=== PATIENT | female | born 1950 | race African-American/Black ===

== ENCOUNTER 2017-06-25 08:26 | Emergency (ER) | payer OTHER, MEDICARE, MEDICAID ==
[~2017-06-25] VITALS: Ht 167.6 cm; Wt 75.0 kg
[~2017-06-25 08:26] MED LIST: LISI2.5T55 PO; RALT400 PO; THIO1CAP PO
[2017-06-25 08:34] VITALS: BP 118/76; PULSE 104; RESP 16; TEMP 97.7; O2SAT 99
[2017-06-25] MEDS ORDERED: VIST25CA PO (08:56)
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
[2017-06-25 09:01] VITALS: PULSE 90; RESP 20; O2SAT 97
== END 2017-06-25 09:50 | disposition home or self-care (01) ==
LOC: NEPD 08:26
DX: M79.602 Pain in left arm (principal); M79.601 Pain in right arm; F41.9 Anxiety disorder, unspecified; J44.9 Chronic obstructive pulmonary disease, unspecified; E78.00 Pure hypercholesterolemia, unspecified; I10 Essential (primary) hypertension; I25.10 Atherosclerotic heart disease of native coronary artery without angina pectoris; M19.90 Unspecified osteoarthritis, unspecified site; F20.9 Schizophrenia, unspecified
CPT/HCPCS: 99283

== ENCOUNTER 2018-03-16 17:09 | Inpatient (IN) ==
[2018-03-16] MEDS ORDERED: Sod Chloride 0.9% Inj 1,000 ML IV.SIG SCH ×2 (17:15→18:30)
[2018-03-16 17:54] LABS: Baso # (Auto) 0.1 th/mm3 (0.0-0.2); Baso % (Auto) 0.8 % (0.0-2.0); Hematocrit 31.2 % (35.0-46.0); Lymph # (Auto) 1.1 th/mm3 (1.0-4.8); Lymph % (Auto) 6.7 % (9.0-44.0); Mean Corpuscular HGB Conc 35.2 % (32.0-36.0); Mean Corpuscular Hemoglobin 31.3 pg (27.0-34.0); Mean Corpuscular Volume 89.1 fL (80.0-100.0); Mean Platelet Volume 8.1 fL (7.0-11.0); Mono # (Auto) 0.6 th/mm3 (0.0-0.9); Mono % (Auto) 3.6 % (0.0-8.0); Neut # (Auto) 13.9 th/mm3 (1.8-7.7); Neut % (Auto) 88.9 % (16.0-70.0); Platelet Count 687 th/mm3 (150-450); Red Blood Count 3.51 mil/mm3 (4.00-5.30); Red Cell Distribution Width 14.5 % (11.6-17.2); White Blood Count 15.7 th/mm3 (4.0-11.0)
--- NOTE | 2018-03-16 18:05 | ED ---
HPI General Chief Complaint: Altered Mental Status Stated Complaint: Poss AMS Time Seen by Provider: 03/16/18 17:10 Source: patient, EMS, old records reviewed and other ([facility] field marketing representative) Mode of arrival: EMS Limitations: altered mental status History of Present Illness HPI narrative: 68-year-old female that presents to the ED for evaluation of altered mental status. Patient was brought here by ambulance secondary to altered mental status. Per report I was given and per [facility] field marketing representative who evaluated the patient patient has been altered since possibly a couple of days now. Patient has significant history of schizophrenia and paranoid. She also probably has a history of HIV. Per report I was given apparently she has been acting more bizarre for the past couple of days. Per field marketing representative who has seen her in the past she has never acted like this before. It almost seems like she is about to fall and has trouble coordinating her movements. It seems like she wants to move to the left side and followed to her left side. Per [facility] report patient was acting very bizarre in trying to put things on her closet but there was nothing there. She herself cannot really give me much history. Per report from the [facility] field marketing representative she might have not been taking her medications. She has no history of stroke. She has no history of cold- like symptoms. Patient herself denies any pain. She does have a history of smoking and possibly COPD. History is low but limited as patient herself is not really good historian secondary to her altered mental status. She denies any drugs or alcohol. Unclear there has been any falls but patient does not appear to have any signs of trauma. Per [facility] report her house is very unkempt and dirty. Related Data Home Medications Medication Instructions Recorded Confirmed amlodipine [Norvasc] 10 mg PO DAILY 03/16/18 03/16/18 darunavir-cobicistat 1 tab PO DAILY 03/16/18 03/16/18 dolutegravir 50 mg PO BID 03/16/18 03/16/18 emtricitabine-tenofovir alafen 1 tab PO DAILY 03/16/18 03/16/18 hydrochlorothiazide 25 mg PO DAILY 03/16/18 03/16/18 lisinopril 20 mg PO DAILY 03/16/18 03/16/18 quetiapine [Seroquel] 50 mg PO HS 03/16/18 03/16/18 tenofovir disoproxil fumarate 300 mg PO DAILY 03/16/18 03/16/18 thiothixene 5 mg PO BID 03/16/18 03/16/18 Allergies Allergy/AdvReac Type Severity Reaction Status Date / Time benztropine Allergy Severe STATES Unverified 02/25/17 14:08 DOESN'T REMEMBER REACTION celecoxib Allergy Severe STATES Unverified 02/25/17 14:08 DOESN'T REMEMBER REACTION citalopram Allergy Severe STATES Unverified 02/25/17 14:08 DOESN'T REMEMBER REACTION diphenhydramine Allergy Severe STATES Unverified 02/25/17 14:08 DOESN'T REMEMBER REACTION haloperidol Allergy Severe STATES Unverified 02/25/17 14:08 DOESN'T REMEMBER REACTION penicillin G Allergy Severe DOESN'T Unverified 02/25/17 14:08 REMEMBER REACTION propoxyphene Allergy Severe Hives Unverified 02/25/17 14:08 quetiapine Allergy Severe DOESN'T Unverified 02/25/17 14:08 REMEMBER REACTION Sulfa (Sulfonamide Allergy Severe DOESN'T Unverified 02/25/17 14:08 Antibiotics) REMEMBER REACTION trifluoperazine Allergy Severe DOESN'T Unverified 02/25/17 14:08 REMEMBER REACTION trihexyphenidyl Allergy Severe STATES Unverified 02/25/17 14:08 DOESN'T REMEMBER TYPE OF REACTION trimethobenzamide Allergy Severe DOESN'T Unverified 02/25/17 14:08 REMEMBER REACTION Review of Systems ROS: all other systems reviewed are negative PMFSH History History 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 Anorexic SKIN: Focused skin assessment warm/dry. HEAD: Atraumatic. Normocephalic. EYES: Pupils equal and round. No scleral icterus. No injection or drainage. ENT: No nasal bleeding or discharge. Mucous membranes pink and moist. NECK: Trachea midline. No JVD. CARDIOVASCULAR: Regular rate and rhythm. No murmur appreciated. RESPIRATORY: No accessory muscle use. Rales here in the lower lung tavarez. Breath sounds equal bilaterally. GASTROINTESTINAL: Abdomen soft, non-tender, nondistended. Hepatic and splenic margins not palpable. MUSCULOSKELETAL: No obvious deformities. No clubbing. No cyanosis. No edema. Full range of motion of the upper and lower extremities bilaterally. 2+ pulses bilaterally. NEUROLOGICAL: Awake and alert. No obvious cranial nerve deficits. Motor grossly within normal limits. Normal speech. PSYCHIATRIC: Appropriate mood and affect; insight and judgment normal. Course Initial Documented Vital Signs Temperature 97.5 F L 03/16/18 17:28 Pulse Rate 71 03/16/18 17:28 Respiratory Rate 18 03/16/18 17:28 Blood Pressure 112/58 L 03/16/18 17:28 Pulse Oximetry 99 03/16/18 17:28 Last Documented Vital Signs Temperature 98.0 F 03/18/18 18:56 Pulse Rate 85 03/19/18 04:00 Respiratory Rate 18 03/18/18 18:56 Blood Pressure 113/60 03/18/18 18:56 Pulse Oximetry 98 03/18/18 18:56 Medical Decision Making WILLIAM Attestation WILLIAM supervised visit: Yes Attestation: I, Dr. Patton, have reviewed the advance practice practitioner's documentation and am in agreement, met with the patient face to face, made the diagnosis, and the medical decision making was done by me. The patient was initially evaluated by Madhav, the WILLIAM. Please see their complete history and physical. *My assessment and Findings: The patient presents with a history of altered mentation noted by family. On examination the patient's examination is remarkable for being awake and alert, confused, following commands but only oriented to person, not place, time, or situation. The patient has dry mucous membranes and poor skin turgor. During the course of the patient's emergency department visit, the patient's history, examination, and differential diagnosis were reviewed with the patient. The patient was placed on a sql report analyst with oximetry and frequent blood pressure monitoring. The patient had IV access obtained and blood work sent for analysis. The patient was initially provided IV fluids. The patient's diagnostic studies are remarkable for her having acute renal failure with a creatinine of 17. The patient's case was discussed with the color blender who recommended bicarbonate administration IV. He will see the patient in consultation. The patient's results were discussed with the patient, including the plan of care. I explained that further testing and/ or monitoring is indicated based on the patient's history, examination, and/ or laboratory findings. Therefore, I recommended admission for additional evaluation. The patient expressed understanding and was agreeable with this plan. The patient was admitted to the hospital in guarded condition and sent to a bed under the care of the [facility] service. MDM Narrative Medical decision making narrative: 68-year-old female that presents to the ED for evaluation of altered mental status. Patient was properly examined and was found to have signs and symptoms of unclear etiology. It is unclear if this is psychiatric or medical. I do suspect that he has a component of both. She does have a significant history of HIV as well as possible COPD. Labs and imaging were ordered. IV fluids were started. Labs and imaging showed significant acute renal failure. No history of this per family. She does take multiple HIV meds which could cause this. Dehydration could also be causing this. Patient given fluids at my attendings recommendations. Dr John for nephrology contacted and recommends to start patient on D5W with Bicarb drip at 200 ccs per hour and renal ultrasound. Case discussed with Dr. Delong who agrees to admission to her service. This was discussed with my attending Dr Patton who agrees with plan. Family agrees with admission as well. Medical Screen Exam Complete: Yes Emergency Medical Condition: Yes Differential Diagnosis Differential Diagnosis: CHF exacerbation versus altered mental status versus sepsis versus CVA versus ACS versus UTI Medical Records Medical records reviewed: Yes I reviewed the patient's medical records. Lab Data Lab results reviewed: Yes I reviewed the patient's lab results. Result diagrams: 03/19/18 06:00 03/19/18 06:00 Lab Results 03/16/18 03/16/18 03/16/18 Range/Units 17:40 17:40 17:40 WBC 15.7 H (4.0-11.0) th/mm3 RBC 3.51 L (4.00-5.30) mil/mm3 Hgb 11.0 L (11.6-15.3) gm/dL Hct 31.2 L (35.0-46.0) % MCV 89.1 (80.0-100.0) fL MCH 31.3 (27.0-34.0) pg MCHC 35.2 (32.0-36.0) % RDW 14.5 (11.6-17.2) % Plt Count 687 H (150-450) th/mm3 MPV 8.1 (7.0-11.0) fL Prelim Diff (Auto) Slide review pending Neut % (Auto) 88.9 H (16.0-70.0) % Lymph % (Auto) 6.7 L (9.0-44.0) % [place] % (Auto) 3.6 (0.0-8.0) % Eos % (Auto) 0.0 (0.0-4.0) % Baso % (Auto) 0.8 (0.0-2.0) % Neut # (Auto) 13.9 H (1.8-7.7) th/mm3 Lymph # (Auto) 1.1 (1.0-4.8) th/mm3 [place] # (Auto) 0.6 (0.0-0.9) th/mm3 Eos # (Auto) 0.0 (0.0-0.4) th/mm3 Baso # (Auto) 0.1 (0.0-0.2) th/mm3 WBC Differential . Diff Scan Auto diff confirmed Differential Comment . Sodium 126 L (136-145) meq/L Potassium 4.4 (3.5-5.1) meq/L Chloride 86 L (98-107) meq/L Carbon Dioxide 12.4 L (21.0-32.0) meq/L Anion Gap 28 H (5-15) meq/L BUN 215 H (7-18) mg/dL Creatinine 17.69 H* (0.50-1.00) mg/dL Estimated GFR 2 L (>89) mL/min POC Glucose (68-110) mg/dl Random Glucose 93 (74-106) mg/dL Hemoglobin A1c (4.3-6.0) % Lactic Acid (0.4-2.0) mmol/L Calcium 8.3 L (8.5-10.1) mg/dL Phosphorus (2.5-4.9) mg/dL Total Bilirubin 0.6 (0.2-1.0) mg/dL AST 15 (15-37) U/L ALT 12 (10-53) U/L Alkaline Phosphatase 122 H (45-117) U/L Total Creatine Kinase (26-192) U/L Troponin I Less than 0.02 L (0.02-0.05) ng/mL B-Natriuretic Peptide (0-100) pg/mL Total Protein 7.5 (6.4-8.2) g/dL Total Protein (PEP) (6.4-8.2) gm/dL Albumin 2.2 L (3.4-5.0) g/dL Albumin (PEP) (3.50-5.00) gm/dL Albumin/Globulin Ratio (1.39-2.23) Uurco-9-Labkyedbg (0.11-0.29) gm/dL Kcouw-4-Nonrarril (0.22-1.00) gm/dL Beta Globulins (0.53-1.03) gm/dL Gamma Globulins (0.50-1.39) gm/dL PEP Pathologist Comment TSH 1.820 (0.358-3.740) uIU/mL Urine Color (Yellw/Straw) Urine Clarity (Clear) Urine pH (5.0-8.5) Ur Specific Reading (1.002-1.035) Urine Protein (Neg-Trace) mg/dL Urine Glucose (UA) (Negative) mg/dL Urine Ketones (Negative) mg/dL Urine Occult Blood (Negative) Urine Nitrate (Negative) Urine Bilirubin (Negative) Urine Urobilinogen (Less than 2) mg/dL Ur Leukocyte Esterase (Negative) Urine RBC (0-3) /hpf Urine WBC (0-5) /hpf Urine WBC Clumps (None) Urine Bacteria (None) /hpf Micro UA Comment Ur Microscopic Review Urine Culture Comments Urine Opiates Screen (Neg) Ur Barbiturates Screen (Neg) Ur Amphetamines Screen (Neg) U Benzodiazepines Scrn (Neg) Urine Cocaine Screen (Neg) U Cannabinoids Screen (Neg) Serum Alcohol Less than 2 (0-5) mg/dL DEVIN Screen (Neg) Complement C3 (90-180) mg/dL Complement C4 (10-40) mg/dL Hepatitis A IgM Ab (Nonreactive) Hep Bs Antigen (Nonreactive) Hep B Core IgM Ab (Nonreactive) Hep C IgG Ab (Nonreactive) 03/16/18 03/16/18 03/16/18 Range/Units 17:40 17:40 17:40 WBC (4.0-11.0) th/mm3 RBC (4.00-5.30) mil/mm3 Hgb (11.6-15.3) gm/dL Hct (35.0-46.0) % MCV (80.0-100.0) fL MCH (27.0-34.0) pg MCHC (32.0-36.0) % RDW (11.6-17.2) % Plt Count (150-450) th/mm3 MPV (7.0-11.0) fL Prelim Diff (Auto) Neut % (Auto) (16.0-70.0) % Lymph % (Auto) (9.0-44.0) % [place] % (Auto) (0.0-8.0) % Eos % (Auto) (0.0-4.0) % Baso % (Auto) (0.0-2.0) % Neut # (Auto) (1.8-7.7) th/mm3 Lymph # (Auto) (1.0-4.8) th/mm3 [place] # (Auto) (0.0-0.9) th/mm3 Eos # (Auto) (0.0-0.4) th/mm3 Baso # (Auto) (0.0-0.2) th/mm3 WBC Differential Diff Scan Differential Comment Sodium (136-145) meq/L Potassium (3.5-5.1) meq/L Chloride (98-107) meq/L Carbon Dioxide (21.0-32.0) meq/L Anion Gap (5-15) meq/L BUN (7-18) mg/dL Creatinine (0.50-1.00) mg/dL Estimated GFR (>89) mL/min POC Glucose (68-110) mg/dl Random Glucose (74-106) mg/dL Hemoglobin A1c (4.3-6.0) % Lactic Acid 0.8 (0.4-2.0) mmol/L Calcium (8.5-10.1) mg/dL Phosphorus (2.5-4.9) mg/dL Total Bilirubin (0.2-1.0) mg/dL AST (15-37) U/L ALT (10-53) U/L Alkaline Phosphatase (45-117) U/L Total Creatine Kinase 62 (26-192) U/L Troponin I (0.02-0.05) ng/mL B-Natriuretic Peptide 101 H (0-100) pg/mL Total Protein (6.4-8.2) g/dL Total Protein (PEP) (6.4-8.2) gm/dL Albumin (3.4-5.0) g/dL Albumin (PEP) (3.50-5.00) gm/dL Albumin/Globulin Ratio (1.39-2.23) Apbuq-6-Jmgsrnuqc (0.11-0.29) gm/dL Kemrs-8-Ndyufejpt (0.22-1.00) gm/dL Beta Globulins (0.53-1.03) gm/dL Gamma Globulins (0.50-1.39) gm/dL PEP Pathologist Comment TSH (0.358-3.740) uIU/mL Urine Color (Yellw/Straw) Urine Clarity (Clear) Urine pH (5.0-8.5) Ur Specific Reading (1.002-1.035) Urine Protein (Neg-Trace) mg/dL Urine Glucose (UA) (Negative) mg/dL Urine Ketones (Negative) mg/dL Urine Occult Blood (Negative) Urine Nitrate (Negative) Urine Bilirubin (Negative) Urine Urobilinogen (Less than 2) mg/dL Ur Leukocyte Esterase (Negative) Urine RBC (0-3) /hpf Urine WBC (0-5) /hpf Urine WBC Clumps (None) Urine Bacteria (None) /hpf Micro UA Comment Ur Microscopic Review Urine Culture Comments Urine Opiates Screen (Neg) Ur Barbiturates Screen (Neg) Ur Amphetamines Screen (Neg) U Benzodiazepines Scrn (Neg) Urine Cocaine Screen (Neg) U Cannabinoids Screen (Neg) Serum Alcohol (0-5) mg/dL DEVIN Screen (Neg) Complement C3 (90-180) mg/dL Complement C4 (10-40) mg/dL Hepatitis A IgM Ab (Nonreactive) Hep Bs Antigen (Nonreactive) Hep B Core IgM Ab (Nonreactive) Hep C IgG Ab (Nonreactive) 03/16/18 03/16/18 03/16/18 Range/Units 18:30 18:30 18:49 WBC (4.0-11.0) th/mm3 RBC (4.00-5.30) mil/mm3 Hgb (11.6-15.3) gm/dL Hct (35.0-46.0) % MCV (80.0-100.0) fL MCH (27.0-34.0) pg MCHC (32.0-36.0) % RDW (11.6-17.2) % Plt Count (150-450) th/mm3 MPV (7.0-11.0) fL Prelim Diff (Auto) Neut % (Auto) (16.0-70.0) % Lymph % (Auto) (9.0-44.0) % [place] % (Auto) (0.0-8.0) % Eos % (Auto) (0.0-4.0) % Baso % (Auto) (0.0-2.0) % Neut # (Auto) (1.8-7.7) th/mm3 Lymph # (Auto) (1.0-4.8) th/mm3 [place] # (Auto) (0.0-0.9) th/mm3 Eos # (Auto) (0.0-0.4) th/mm3 Baso # (Auto) (0.0-0.2) th/mm3 WBC Differential Diff Scan Differential Comment Sodium 126 L (136-145) meq/L Potassium 5.4 H D (3.5-5.1) meq/L Chloride 87 L (98-107) meq/L Carbon Dioxide 12.7 L (21.0-32.0) meq/L Anion Gap 26 H (5-15) meq/L BUN 222 H (7-18) mg/dL Creatinine 17.73 H* (0.50-1.00) mg/dL Estimated GFR 2 L (>89) mL/min POC Glucose (68-110) mg/dl Random Glucose 93 (74-106) mg/dL Hemoglobin A1c (4.3-6.0) % Lactic Acid (0.4-2.0) mmol/L Calcium 8.3 L (8.5-10.1) mg/dL Phosphorus (2.5-4.9) mg/dL Total Bilirubin (0.2-1.0) mg/dL AST (15-37) U/L ALT (10-53) U/L Alkaline Phosphatase (45-117) U/L Total Creatine Kinase (26-192) U/L Troponin I (0.02-0.05) ng/mL B-Natriuretic Peptide (0-100) pg/mL Total Protein (6.4-8.2) g/dL Total Protein (PEP) (6.4-8.2) gm/dL Albumin (3.4-5.0) g/dL Albumin (PEP) (3.50-5.00) gm/dL Albumin/Globulin Ratio (1.39-2.23) Ocgjo-7-Yianumkxs (0.11-0.29) gm/dL Gkepc-4-Fnhxfbuzt (0.22-1.00) gm/dL Beta Globulins (0.53-1.03) gm/dL Gamma Globulins (0.50-1.39) gm/dL PEP Pathologist Comment TSH (0.358-3.740) uIU/mL Urine Color Serena (Yellw/Straw) Urine Clarity Cloudy H (Clear) Urine pH 6.0 (5.0-8.5) Ur Specific Reading 1.012 (1.002-1.035) Urine Protein 100 H (Neg-Trace) mg/dL Urine Glucose (UA) Negative (Negative) mg/dL Urine Ketones Negative (Negative) mg/dL Urine Occult Blood Large H (Negative) Urine Nitrate Negative (Negative) Urine Bilirubin Negative (Negative) Urine Urobilinogen Less than 2 (Less than 2) mg/dL Ur Leukocyte Esterase Large H (Negative) Urine RBC 42 H (0-3) /hpf Urine WBC (0-5) /hpf Urine WBC Clumps Many H (None) Urine Bacteria Many H (None) /hpf Micro UA Comment Cath-culture ind Ur Microscopic Review Not Reportable Urine Culture Comments Cath-cult indicated Urine Opiates Screen Neg (Neg) Ur Barbiturates Screen Neg (Neg) Ur Amphetamines Screen Neg (Neg) U Benzodiazepines Scrn Neg (Neg) Urine Cocaine Screen Neg (Neg) U Cannabinoids Screen Neg (Neg) Serum Alcohol (0-5) mg/dL DEVIN Screen (Neg) Complement C3 (90-180) mg/dL Complement C4 (10-40) mg/dL Hepatitis A IgM Ab (Nonreactive) Hep Bs Antigen (Nonreactive) Hep B Core IgM Ab (Nonreactive) Hep C IgG Ab (Nonreactive) 03/17/18 03/17/18 03/17/18 Range/Units 05:04 05:04 05:04 WBC 13.2 H (4.0-11.0) th/mm3 RBC 3.18 L (4.00-5.30) mil/mm3 Hgb 9.9 L (11.6-15.3) gm/dL Hct 28.0 L (35.0-46.0) % MCV 88.3 (80.0-100.0) fL MCH 31.0 (27.0-34.0) pg MCHC 35.1 (32.0-36.0) % RDW 14.3 (11.6-17.2) % Plt Count 673 H (150-450) th/mm3 MPV 8.1 (7.0-11.0) fL Prelim Diff (Auto) Neut % (Auto) 89.0 H (16.0-70.0) % Lymph % (Auto) 5.8 L (9.0-44.0) % [place] % (Auto) 5.0 (0.0-8.0) % Eos % (Auto) 0.1 (0.0-4.0) % Baso % (Auto) 0.1 (0.0-2.0) % Neut # (Auto) 11.7 H (1.8-7.7) th/mm3 Lymph # (Auto) 0.8 L (1.0-4.8) th/mm3 [place] # (Auto) 0.7 (0.0-0.9) th/mm3 Eos # (Auto) 0.0 (0.0-0.4) th/mm3 Baso # (Auto) 0.0 (0.0-0.2) th/mm3 WBC Differential . Diff Scan Differential Comment Auto diff final Sodium 128 L (136-145) meq/L Potassium 4.3 D (3.5-5.1) meq/L Chloride 86 L (98-107) meq/L Carbon Dioxide 15.7 L (21.0-32.0) meq/L Anion Gap 26 H (5-15) meq/L BUN 210 H (7-18) mg/dL Creatinine 17.35 H* (0.50-1.00) mg/dL Estimated GFR 2 L (>89) mL/min POC Glucose (68-110) mg/dl Random Glucose 168 H (74-106) mg/dL Hemoglobin A1c 6.1 H (4.3-6.0) % Lactic Acid (0.4-2.0) mmol/L Calcium 7.7 L (8.5-10.1) mg/dL Phosphorus (2.5-4.9) mg/dL Total Bilirubin 0.5 (0.2-1.0) mg/dL AST 12 L (15-37) U/L ALT 9 L (10-53) U/L Alkaline Phosphatase 108 (45-117) U/L Total Creatine Kinase (26-192) U/L Troponin I (0.02-0.05) ng/mL B-Natriuretic Peptide (0-100) pg/mL Total Protein 6.6 D (6.4-8.2) g/dL Total Protein (PEP) (6.4-8.2) gm/dL Albumin 2.0 L (3.4-5.0) g/dL Albumin (PEP) (3.50-5.00) gm/dL Albumin/Globulin Ratio (1.39-2.23) Zomhj-9-Yscmxsxcy (0.11-0.29) gm/dL Twkrj-5-Bhueqvwak (0.22-1.00) gm/dL Beta Globulins (0.53-1.03) gm/dL Gamma Globulins (0.50-1.39) gm/dL PEP Pathologist Comment TSH (0.358-3.740) uIU/mL Urine Color (Yellw/Straw) Urine Clarity (Clear) Urine pH (5.0-8.5) Ur Specific Reading (1.002-1.035) Urine Protein (Neg-Trace) mg/dL Urine Glucose (UA) (Negative) mg/dL Urine Ketones (Negative) mg/dL Urine Occult Blood (Negative) Urine Nitrate (Negative) Urine Bilirubin (Negative) Urine Urobilinogen (Less than 2) mg/dL Ur Leukocyte Esterase (Negative) Urine RBC (0-3) /hpf Urine WBC (0-5) /hpf Urine WBC Clumps (None) Urine Bacteria (None) /hpf Micro UA Comment Ur Microscopic Review Urine Culture Comments Urine Opiates Screen (Neg) Ur Barbiturates Screen (Neg) Ur Amphetamines Screen (Neg) U Benzodiazepines Scrn (Neg) Urine Cocaine Screen (Neg) U Cannabinoids Screen (Neg) Serum Alcohol (0-5) mg/dL DEVIN Screen (Neg) Complement C3 (90-180) mg/dL Complement C4 (10-40) mg/dL Hepatitis A IgM Ab (Nonreactive) Hep Bs Antigen (Nonreactive) Hep B Core IgM Ab (Nonreactive) Hep C IgG Ab (Nonreactive) 03/17/18 03/17/18 03/17/18 Range/Units 09:51 09:51 09:51 WBC (4.0-11.0) th/mm3 RBC (4.00-5.30) mil/mm3 Hgb (11.6-15.3) gm/dL Hct (35.0-46.0) % MCV (80.0-100.0) fL MCH (27.0-34.0) pg MCHC (32.0-36.0) % RDW (11.6-17.2) % Plt Count (150-450) th/mm3 MPV (7.0-11.0) fL Prelim Diff (Auto) Neut % (Auto) (16.0-70.0) % Lymph % (Auto) (9.0-44.0) % [place] % (Auto) (0.0-8.0) % Eos % (Auto) (0.0-4.0) % Baso % (Auto) (0.0-2.0) % Neut # (Auto) (1.8-7.7) th/mm3 Lymph # (Auto) (1.0-4.8) th/mm3 [place] # (Auto) (0.0-0.9) th/mm3 Eos # (Auto) (0.0-0.4) th/mm3 Baso # (Auto) (0.0-0.2) th/mm3 WBC Differential Diff Scan Differential Comment Sodium (136-145) meq/L Potassium (3.5-5.1) meq/L Chloride (98-107) meq/L Carbon Dioxide (21.0-32.0) meq/L Anion Gap (5-15) meq/L BUN (7-18) mg/dL Creatinine (0.50-1.00) mg/dL Estimated GFR (>89) mL/min POC Glucose (68-110) mg/dl Random Glucose (74-106) mg/dL Hemoglobin A1c (4.3-6.0) % Lactic Acid (0.4-2.0) mmol/L Calcium (8.5-10.1) mg/dL Phosphorus 8.2 H (2.5-4.9) mg/dL Total Bilirubin (0.2-1.0) mg/dL AST (15-37) U/L ALT (10-53) U/L Alkaline Phosphatase (45-117) U/L Total Creatine Kinase (26-192) U/L Troponin I (0.02-0.05) ng/mL B-Natriuretic Peptide (0-100) pg/mL Total Protein (6.4-8.2) g/dL Total Protein (PEP) 5.5 L (6.4-8.2) gm/dL Albumin (3.4-5.0) g/dL Albumin (PEP) 2.33 L (3.50-5.00) gm/dL Albumin/Globulin Ratio 0.74 L (1.39-2.23) Yzdlh-5-Zfaslmgjc 0.45 H (0.11-0.29) gm/dL Nkhwt-7-Mjzjrbmio 0.92 (0.22-1.00) gm/dL Beta Globulins 0.84 (0.53-1.03) gm/dL Gamma Globulins 0.96 (0.50-1.39) gm/dL PEP Pathologist Comment TSH (0.358-3.740) uIU/mL Urine Color (Yellw/Straw) Urine Clarity (Clear) Urine pH (5.0-8.5) Ur Specific Reading (1.002-1.035) Urine Protein (Neg-Trace) mg/dL Urine Glucose (UA) (Negative) mg/dL Urine Ketones (Negative) mg/dL Urine Occult Blood (Negative) Urine Nitrate (Negative) Urine Bilirubin (Negative) Urine Urobilinogen (Less than 2) mg/dL Ur Leukocyte Esterase (Negative) Urine RBC (0-3) /hpf Urine WBC (0-5) /hpf Urine WBC Clumps (None) Urine Bacteria (None) /hpf Micro UA Comment Ur Microscopic Review Urine Culture Comments Urine Opiates Screen (Neg) Ur Barbiturates Screen (Neg) Ur Amphetamines Screen (Neg) U Benzodiazepines Scrn (Neg) Urine Cocaine Screen (Neg) U Cannabinoids Screen (Neg) Serum Alcohol (0-5) mg/dL DEVIN Screen Neg (Neg) Complement C3 125 (90-180) mg/dL Complement C4 37 (10-40) mg/dL Hepatitis A IgM Ab (Nonreactive) Hep Bs Antigen (Nonreactive) Hep B Core IgM Ab (Nonreactive) Hep C IgG Ab (Nonreactive) 03/17/18 03/17/18 03/18/18 Range/Units 09:51 17:57 07:23 WBC (4.0-11.0) th/mm3 RBC (4.00-5.30) mil/mm3 Hgb (11.6-15.3) gm/dL Hct (35.0-46.0) % MCV (80.0-100.0) fL MCH (27.0-34.0) pg MCHC (32.0-36.0) % RDW (11.6-17.2) % Plt Count (150-450) th/mm3 MPV (7.0-11.0) fL Prelim Diff (Auto) Neut % (Auto) (16.0-70.0) % Lymph % (Auto) (9.0-44.0) % [place] % (Auto) (0.0-8.0) % Eos % (Auto) (0.0-4.0) % Baso % (Auto) (0.0-2.0) % Neut # (Auto) (1.8-7.7) th/mm3 Lymph # (Auto) (1.0-4.8) th/mm3 [place] # (Auto) (0.0-0.9) th/mm3 Eos # (Auto) (0.0-0.4) th/mm3 Baso # (Auto) (0.0-0.2) th/mm3 WBC Differential Diff Scan Differential Comment Sodium (136-145) meq/L Potassium (3.5-5.1) meq/L Chloride (98-107) meq/L Carbon Dioxide (21.0-32.0) meq/L Anion Gap (5-15) meq/L BUN (7-18) mg/dL Creatinine (0.50-1.00) mg/dL Estimated GFR (>89) mL/min POC Glucose 119 H 126 H (68-110) mg/dl Random Glucose (74-106) mg/dL Hemoglobin A1c (4.3-6.0) % Lactic Acid (0.4-2.0) mmol/L Calcium (8.5-10.1) mg/dL Phosphorus (2.5-4.9) mg/dL Total Bilirubin (0.2-1.0) mg/dL AST (15-37) U/L ALT (10-53) U/L Alkaline Phosphatase (45-117) U/L Total Creatine Kinase (26-192) U/L Troponin I (0.02-0.05) ng/mL B-Natriuretic Peptide (0-100) pg/mL Total Protein (6.4-8.2) g/dL Total Protein (PEP) (6.4-8.2) gm/dL Albumin (3.4-5.0) g/dL Albumin (PEP) (3.50-5.00) gm/dL Albumin/Globulin Ratio (1.39-2.23) Wduae-0-Qknxgfdfx (0.11-0.29) gm/dL Sqdgb-8-Egcboqetp (0.22-1.00) gm/dL Beta Globulins (0.53-1.03) gm/dL Gamma Globulins (0.50-1.39) gm/dL PEP Pathologist Comment TSH (0.358-3.740) uIU/mL Urine Color (Yellw/Straw) Urine Clarity (Clear) Urine pH (5.0-8.5) Ur Specific Reading (1.002-1.035) Urine Protein (Neg-Trace) mg/dL Urine Glucose (UA) (Negative) mg/dL Urine Ketones (Negative) mg/dL Urine Occult Blood (Negative) Urine Nitrate (Negative) Urine Bilirubin (Negative) Urine Urobilinogen (Less than 2) mg/dL Ur Leukocyte Esterase (Negative) Urine RBC (0-3) /hpf Urine WBC (0-5) /hpf Urine WBC Clumps (None) Urine Bacteria (None) /hpf Micro UA Comment Ur Microscopic Review Urine Culture Comments Urine Opiates Screen (Neg) Ur Barbiturates Screen (Neg) Ur Amphetamines Screen (Neg) U Benzodiazepines Scrn (Neg) Urine Cocaine Screen (Neg) U Cannabinoids Screen (Neg) Serum Alcohol (0-5) mg/dL DEVIN Screen (Neg) Complement C3 (90-180) mg/dL Complement C4 (10-40) mg/dL Hepatitis A IgM Ab Nonreactive (Nonreactive) Hep Bs Antigen Nonreactive (Nonreactive) Hep B Core IgM Ab Nonreactive (Nonreactive) Hep C IgG Ab Nonreactive (Nonreactive) 03/18/18 03/18/18 03/18/18 Range/Units 10:55 12:35 12:35 WBC 18.1 H (4.0-11.0) th/mm3 RBC 4.26 (4.00-5.30) mil/mm3 Hgb 13.2 D (11.6-15.3) gm/dL Hct 38.1 (35.0-46.0) % MCV 89.5 (80.0-100.0) fL MCH 30.9 (27.0-34.0) pg MCHC 34.5 (32.0-36.0) % RDW 14.4 (11.6-17.2) % Plt Count 493 H (150-450) th/mm3 MPV 8.1 (7.0-11.0) fL Prelim Diff (Auto) Neut % (Auto) 89.9 H (16.0-70.0) % Lymph % (Auto) 3.9 L (9.0-44.0) % [place] % (Auto) 5.7 (0.0-8.0) % Eos % (Auto) 0.3 (0.0-4.0) % Baso % (Auto) 0.2 (0.0-2.0) % Neut # (Auto) 16.3 H (1.8-7.7) th/mm3 Lymph # (Auto) 0.7 L (1.0-4.8) th/mm3 [place] # (Auto) 1.0 H (0.0-0.9) th/mm3 Eos # (Auto) 0.0 (0.0-0.4) th/mm3 Baso # (Auto) 0.0 (0.0-0.2) th/mm3 WBC Differential . Diff Scan Differential Comment Auto diff final Sodium 137 (136-145) meq/L Potassium 3.5 D (3.5-5.1) meq/L Chloride 96 L D (98-107) meq/L Carbon Dioxide 25.7 D (21.0-32.0) meq/L Anion Gap 15 (5-15) meq/L BUN 75 H (7-18) mg/dL Creatinine 7.49 H (0.50-1.00) mg/dL Estimated GFR 7 L (>89) mL/min POC Glucose 97 (68-110) mg/dl Random Glucose 94 (74-106) mg/dL Hemoglobin A1c (4.3-6.0) % Lactic Acid (0.4-2.0) mmol/L Calcium 8.7 D (8.5-10.1) mg/dL Phosphorus (2.5-4.9) mg/dL Total Bilirubin 0.8 (0.2-1.0) mg/dL AST 19 (15-37) U/L ALT 9 L (10-53) U/L Alkaline Phosphatase 115 (45-117) U/L Total Creatine Kinase (26-192) U/L Troponin I (0.02-0.05) ng/mL B-Natriuretic Peptide (0-100) pg/mL Total Protein 7.0 (6.4-8.2) g/dL Total Protein (PEP) (6.4-8.2) gm/dL Albumin 2.2 L (3.4-5.0) g/dL Albumin (PEP) (3.50-5.00) gm/dL Albumin/Globulin Ratio (1.39-2.23) Rkhlw-9-Laizmfucn (0.11-0.29) gm/dL Fcqwm-0-Zrxifmtlp (0.22-1.00) gm/dL Beta Globulins (0.53-1.03) gm/dL Gamma Globulins (0.50-1.39) gm/dL PEP Pathologist Comment TSH (0.358-3.740) uIU/mL Urine Color (Yellw/Straw) Urine Clarity (Clear) Urine pH (5.0-8.5) Ur Specific Reading (1.002-1.035) Urine Protein (Neg-Trace) mg/dL Urine Glucose (UA) (Negative) mg/dL Urine Ketones (Negative) mg/dL Urine Occult Blood (Negative) Urine Nitrate (Negative) Urine Bilirubin (Negative) Urine Urobilinogen (Less than 2) mg/dL Ur Leukocyte Esterase (Negative) Urine RBC (0-3) /hpf Urine WBC (0-5) /hpf Urine WBC Clumps (None) Urine Bacteria (None) /hpf Micro UA Comment Ur Microscopic Review Urine Culture Comments Urine Opiates Screen (Neg) Ur Barbiturates Screen (Neg) Ur Amphetamines Screen (Neg) U Benzodiazepines Scrn (Neg) Urine Cocaine Screen (Neg) U Cannabinoids Screen (Neg) Serum Alcohol (0-5) mg/dL DEVIN Screen (Neg) Complement C3 (90-180) mg/dL Complement C4 (10-40) mg/dL Hepatitis A IgM Ab (Nonreactive) Hep Bs Antigen (Nonreactive) Hep B Core IgM Ab (Nonreactive) Hep C IgG Ab (Nonreactive) 03/18/18 03/19/18 03/19/18 Range/Units 17:02 06:00 06:00 WBC 19.8 H (4.0-11.0) th/mm3 RBC 3.28 L (4.00-5.30) mil/mm3 Hgb 10.0 L D (11.6-15.3) gm/dL Hct 29.1 L (35.0-46.0) % MCV 88.8 (80.0-100.0) fL MCH 30.6 (27.0-34.0) pg MCHC 34.4 (32.0-36.0) % RDW 14.1 (11.6-17.2) % Plt Count 544 H (150-450) th/mm3 MPV 8.4 (7.0-11.0) fL Prelim Diff (Auto) Neut % (Auto) 88.4 H (16.0-70.0) % Lymph % (Auto) 5.3 L (9.0-44.0) % [place] % (Auto) 5.8 (0.0-8.0) % Eos % (Auto) 0.3 (0.0-4.0) % Baso % (Auto) 0.2 (0.0-2.0) % Neut # (Auto) 17.5 H (1.8-7.7) th/mm3 Lymph # (Auto) 1.0 (1.0-4.8) th/mm3 [place] # (Auto) 1.1 H (0.0-0.9) th/mm3 Eos # (Auto) 0.1 (0.0-0.4) th/mm3 Baso # (Auto) 0.0 (0.0-0.2) th/mm3 WBC Differential . Diff Scan Differential Comment Auto diff final Sodium 138 (136-145) meq/L Potassium 3.8 (3.5-5.1) meq/L Chloride 96 L (98-107) meq/L Carbon Dioxide 26.1 (21.0-32.0) meq/L Anion Gap 16 H (5-15) meq/L BUN 85 H (7-18) mg/dL Creatinine 9.16 H (0.50-1.00) mg/dL Estimated GFR 5 L (>89) mL/min POC Glucose 150 H (68-110) mg/dl Random Glucose 96 (74-106) mg/dL Hemoglobin A1c (4.3-6.0) % Lactic Acid (0.4-2.0) mmol/L Calcium 8.9 (8.5-10.1) mg/dL Phosphorus 5.6 H D (2.5-4.9) mg/dL Total Bilirubin (0.2-1.0) mg/dL AST (15-37) U/L ALT (10-53) U/L Alkaline Phosphatase (45-117) U/L Total Creatine Kinase (26-192) U/L Troponin I (0.02-0.05) ng/mL B-Natriuretic Peptide (0-100) pg/mL Total Protein (6.4-8.2) g/dL Total Protein (PEP) (6.4-8.2) gm/dL Albumin 2.1 L (3.4-5.0) g/dL Albumin (PEP) (3.50-5.00) gm/dL Albumin/Globulin Ratio (1.39-2.23) Vpydn-3-Yknvdypqt (0.11-0.29) gm/dL Svncu-7-Bdsgcqbhe (0.22-1.00) gm/dL Beta Globulins (0.53-1.03) gm/dL Gamma Globulins (0.50-1.39) gm/dL PEP Pathologist Comment TSH (0.358-3.740) uIU/mL Urine Color (Yellw/Straw) Urine Clarity (Clear) Urine pH (5.0-8.5) Ur Specific Reading (1.002-1.035) Urine Protein (Neg-Trace) mg/dL Urine Glucose (UA) (Negative) mg/dL Urine Ketones (Negative) mg/dL Urine Occult Blood (Negative) Urine Nitrate (Negative) Urine Bilirubin (Negative) Urine Urobilinogen (Less than 2) mg/dL Ur Leukocyte Esterase (Negative) Urine RBC (0-3) /hpf Urine WBC (0-5) /hpf Urine WBC Clumps (None) Urine Bacteria (None) /hpf Micro UA Comment Ur Microscopic Review Urine Culture Comments Urine Opiates Screen (Neg) Ur Barbiturates Screen (Neg) Ur Amphetamines Screen (Neg) U Benzodiazepines Scrn (Neg) Urine Cocaine Screen (Neg) U Cannabinoids Screen (Neg) Serum Alcohol (0-5) mg/dL DEVIN Screen (Neg) Complement C3 (90-180) mg/dL Complement C4 (10-40) mg/dL Hepatitis A IgM Ab (Nonreactive) Hep Bs Antigen (Nonreactive) Hep B Core IgM Ab (Nonreactive) Hep C IgG Ab (Nonreactive) 03/19/18 Range/Units 08:00 WBC (4.0-11.0) th/mm3 RBC (4.00-5.30) mil/mm3 Hgb (11.6-15.3) gm/dL Hct (35.0-46.0) % MCV (80.0-100.0) fL MCH (27.0-34.0) pg MCHC (32.0-36.0) % RDW (11.6-17.2) % Plt Count (150-450) th/mm3 MPV (7.0-11.0) fL Prelim Diff (Auto) Neut % (Auto) (16.0-70.0) % Lymph % (Auto) (9.0-44.0) % [place] % (Auto) (0.0-8.0) % Eos % (Auto) (0.0-4.0) % Baso % (Auto) (0.0-2.0) % Neut # (Auto) (1.8-7.7) th/mm3 Lymph # (Auto) (1.0-4.8) th/mm3 [place] # (Auto) (0.0-0.9) th/mm3 Eos # (Auto) (0.0-0.4) th/mm3 Baso # (Auto) (0.0-0.2) th/mm3 WBC Differential Diff Scan Differential Comment Sodium (136-145) meq/L Potassium (3.5-5.1) meq/L Chloride (98-107) meq/L Carbon Dioxide (21.0-32.0) meq/L Anion Gap (5-15) meq/L BUN (7-18) mg/dL Creatinine (0.50-1.00) mg/dL Estimated GFR (>89) mL/min POC Glucose 129 H (68-110) mg/dl Random Glucose (74-106) mg/dL Hemoglobin A1c (4.3-6.0) % Lactic Acid (0.4-2.0) mmol/L Calcium (8.5-10.1) mg/dL Phosphorus (2.5-4.9) mg/dL Total Bilirubin (0.2-1.0) mg/dL AST (15-37) U/L ALT (10-53) U/L Alkaline Phosphatase (45-117) U/L Total Creatine Kinase (26-192) U/L Troponin I (0.02-0.05) ng/mL B-Natriuretic Peptide (0-100) pg/mL Total Protein (6.4-8.2) g/dL Total Protein (PEP) (6.4-8.2) gm/dL Albumin (3.4-5.0) g/dL Albumin (PEP) (3.50-5.00) gm/dL Albumin/Globulin Ratio (1.39-2.23) Lmbkt-7-Rosxufqaw (0.11-0.29) gm/dL Ruiqs-3-Rddtevqnp (0.22-1.00) gm/dL Beta Globulins (0.53-1.03) gm/dL Gamma Globulins (0.50-1.39) gm/dL PEP Pathologist Comment TSH (0.358-3.740) uIU/mL Urine Color (Yellw/Straw) Urine Clarity (Clear) Urine pH (5.0-8.5) Ur Specific Reading (1.002-1.035) Urine Protein (Neg-Trace) mg/dL Urine Glucose (UA) (Negative) mg/dL Urine Ketones (Negative) mg/dL Urine Occult Blood (Negative) Urine Nitrate (Negative) Urine Bilirubin (Negative) Urine Urobilinogen (Less than 2) mg/dL Ur Leukocyte Esterase (Negative) Urine RBC (0-3) /hpf Urine WBC (0-5) /hpf Urine WBC Clumps (None) Urine Bacteria (None) /hpf Micro UA Comment Ur Microscopic Review Urine Culture Comments Urine Opiates Screen (Neg) Ur Barbiturates Screen (Neg) Ur Amphetamines Screen (Neg) U Benzodiazepines Scrn (Neg) Urine Cocaine Screen (Neg) U Cannabinoids Screen (Neg) Serum Alcohol (0-5) mg/dL DEVIN Screen (Neg) Complement C3 (90-180) mg/dL Complement C4 (10-40) mg/dL Hepatitis A IgM Ab (Nonreactive) Hep Bs Antigen (Nonreactive) Hep B Core IgM Ab (Nonreactive) Hep C IgG Ab (Nonreactive) Imaging Data Attestation: I personally reviewed and interpreted this imaging study as follows : Radiologist's impression: Chest X-Ray 03/16/18 17:13 CONCLUSION: Slight CHF. Head CT 03/16/18 17:13 CONCLUSION: Unremarkable study except for mild mucoperiosteal thickening left sphenoid sinus. Abdomen/Pelvis CT 03/16/18 19:35 CONCLUSION: Essentially unremarkable study except for chronic vascular calcifications and stool. Abdomen/Bladder Ultrasound 03/16/18 20:12 CONCLUSION: 1. Negative renal sonogram. Catheter Placement 03/17/18 08:42 CONCLUSION: 1. Uncomplicated line placement as above. ECG Data Attestation: I personally reviewed and interpreted this ECG as follows: Interpretation: EKG shows sinus rhythm with no sign of acute ischemia or arrhythmia read by me and attending. No ST elevations. NJ interval of 192, vent rate of 73. Discharge Plan Discharge Disposition Patient Disposition: 30 Still Patient Discharge Details Diagnosis: Acute renal failure, Altered mental status, HIV (human immunodeficiency virus infection), Schizophrenia Physicians Team ED Provider: Stephanie Patton ED Midlevel Provider: Madhav Caputo Primary Care Provider: Primary Care Harshad,Minda Attending Provider: Jonathon Macias Other Providers: Roosevlet John ; Emili Centeno Status ED Status: Left Department Discharge Information Discharge Date/Time: 03/16/18 22:32
[2018-03-16 18:11] LABS: Alanine Aminotransferase 12 U/L (10-53); Albumin 2.2 g/dL (3.4-5.0); Anion Gap 28 meq/L (5-15); Aspartate Aminotransferase 15 U/L (15-37); Blood Urea Nitrogen 215 mg/dL (7-18); Calcium 8.3 mg/dL (8.5-10.1); Carbon Dioxide 12.4 meq/L (21.0-32.0); Chloride 86 meq/L (98-107); Glomerular Filtration Rate 2 mL/min (>89); Glucose,Random 93 mg/dL (74-106); Potassium 4.4 meq/L (3.5-5.1); Sodium 126 meq/L (136-145)
[2018-03-16 18:14] LABS: Alkaline Phosphatase 122 U/L (45-117); Total Protein 7.5 g/dL (6.4-8.2)
[2018-03-16 19:11] LABS: Bacteria,Urine Many /hpf; Bilirubin,Urine Negative (Negative); Clarity,Urine Cloudy (Clear); Color,Urine Amber (Yellw/Straw); Glucose,Urine (UA) Negative (Negative); Leukocyte Esterase,Urine Large (Negative); Nitrite,Urine Negative (Negative); Specific Gravity,Urine 1.012 (1.002-1.035)
[2018-03-16] MEDS ORDERED: Ciprofloxacin 400 MG/200 ML 400 MG/200 ML PIGGYBACK IV.SIG ONE (19:13)
[2018-03-16 19:19] LABS: Amphetamine Screen,Urine Neg (Neg); Barbiturate Screen,Urine Neg (Neg); Cannabinoid Screen,Urine Neg (Neg); Cocaine Screen,Urine Neg (Neg)
[2018-03-16 19:26] LABS: Calcium 8.3 mg/dL (8.5-10.1); Carbon Dioxide 12.7 meq/L (21.0-32.0)
[2018-03-16 19:27] LABS: Opiate Screen,Urine Neg (Neg)
[2018-03-16 19:33] LABS: Potassium 5.4 meq/L (3.5-5.1)
[2018-03-16] MEDS ORDERED: Bisacodyl 10 MG Supp RECTAL PRN (21:06)
[2018-03-16] MEDS ORDERED: Acetaminophen 325 MG Tablet PO PRN (21:06)
[2018-03-16] MEDS: Heparin - SQ 10,000 UNITS/ML Vial SQ SCH (21:37)
--- NOTE | 2018-03-16 21:49 | ECG ---
Date Performed: 03/16/2018 Time Performed: 18:03:32 PTAGE: 68 years EKG: Sinus rhythm NORMAL ECG PREVIOUS TRACING : 03/31/2007 15.30 No significant change from previous tracing noted. DOCTOR: Darryl Nava Interpretating Date/Time 03/16/2018 21:47:25
[2018-03-16] MEDS: Sodium Bicarbonate 8.4% Inj 75 MEQ in Dextrose 5% in Water Inj 925 ML IV.CONT SCH ×2 (23:04)
[2018-03-17] MEDS: Sodium Bicarbonate 8.4% Inj 75 MEQ in Dextrose 5% in Water Inj 925 ML IV.CONT SCH ×4 (04:25→19:33)
[2018-03-17] MEDS: Heparin - SQ 10,000 UNITS/ML Vial SQ SCH (05:19)
[2018-03-17 05:56] LABS: Baso % (Auto) 0.1 % (0.0-2.0); Eos % (Auto) 0.1 % (0.0-4.0); Hemoglobin 9.9 gm/dL (11.6-15.3); Lymph # (Auto) 0.8 th/mm3 (1.0-4.8); Lymph % (Auto) 5.8 % (9.0-44.0); Mean Corpuscular HGB Conc 35.1 % (32.0-36.0); Mean Corpuscular Volume 88.3 fL (80.0-100.0); Mean Platelet Volume 8.1 fL (7.0-11.0); Mono # (Auto) 0.7 th/mm3 (0.0-0.9); Neut # (Auto) 11.7 th/mm3 (1.8-7.7); Platelet Count 673 th/mm3 (150-450); Red Blood Count 3.18 mil/mm3 (4.00-5.30); Red Cell Distribution Width 14.3 % (11.6-17.2); White Blood Count 13.2 th/mm3 (4.0-11.0)
[2018-03-17 06:28] LABS: Alanine Aminotransferase 9 U/L (10-53); Alkaline Phosphatase 108 U/L (45-117); Anion Gap 26 meq/L (5-15); Aspartate Aminotransferase 12 U/L (15-37); Blood Urea Nitrogen 210 mg/dL (7-18); Calcium 7.7 mg/dL (8.5-10.1); Carbon Dioxide 15.7 meq/L (21.0-32.0); Chloride 86 meq/L (98-107); Glomerular Filtration Rate 2 mL/min (>89); Glucose,Random 168 mg/dL (74-106); Potassium 4.3 meq/L (3.5-5.1); Sodium 128 meq/L (136-145); Total Protein 6.6 g/dL (6.4-8.2)
[2018-03-17] MEDS ORDERED: Sod Chloride 0.9% Inj 1,000 ML OTHER PRN ×2 (08:57)
[2018-03-17] MEDS ORDERED: Albumin Human 25% Inj 100 ML IV.SIG PRN (08:57)
[2018-03-17] MEDS ORDERED: Heparin 10,000 UNITS/10 ML Vial (for IV use) OTHER PRN (08:57)
[2018-03-17] MEDS ORDERED: Sod Chloride 0.9% Inj 1,000 ML IV.CONT PRN (08:57)
[2018-03-17] MEDS ORDERED: Acetaminophen 325 MG Tablet PO PRN (08:57)
[2018-03-17] MEDS ORDERED: Gelatin 12 MM/7 MM Topical Foam TOPICAL PRN (08:57)
[2018-03-17 11:27] LABS: Phosphorus 8.2 mg/dL (2.5-4.9)
[2018-03-17 11:39] LABS: Hepatitits B Surface Antigen Nonreactive (Nonreactive)
[2018-03-17 12:00] LABS: Hepatitis A IgM Antibody Nonreactive (Nonreactive)
[2018-03-17] MEDS ORDERED: *Heparin 10,000 UNITS/10 ML Vial Periprocedural ONLY ONE (12:33)
[2018-03-17] MEDS ORDERED: Dextrose 50% in Water 50 ML Vial IV.PUSH PRN (15:31)
[2018-03-17] MEDS: Insulin NovoLOG Aspart Correctional Sugar Inj SQ SCH ×2 (19:33→20:59)
[2018-03-17 22:24] LABS: Hemoglobin A1c 6.1 % (4.3-6.0)
[2018-03-18] MEDS: Insulin NovoLOG Aspart Correctional Sugar Inj SQ SCH ×4 (08:22→21:00)
[2018-03-18] MEDS: Sodium Bicarbonate 8.4% Inj 75 MEQ in Dextrose 5% in Water Inj 925 ML IV.CONT SCH ×2 (08:22)
[2018-03-18] MEDS: Heparin 10,000 UNITS/10 ML Vial (for IV use) OTHER PRN (11:15)
[2018-03-18 13:14] LABS: Baso % (Auto) 0.2 % (0.0-2.0); Eos % (Auto) 0.3 % (0.0-4.0); Hematocrit 38.1 % (35.0-46.0); Hemoglobin 13.2 gm/dL (11.6-15.3); Lymph # (Auto) 0.7 th/mm3 (1.0-4.8); Lymph % (Auto) 3.9 % (9.0-44.0); Mean Corpuscular HGB Conc 34.5 % (32.0-36.0); Mean Corpuscular Hemoglobin 30.9 pg (27.0-34.0); Mean Corpuscular Volume 89.5 fL (80.0-100.0); Mean Platelet Volume 8.1 fL (7.0-11.0); Mono % (Auto) 5.7 % (0.0-8.0); Neut # (Auto) 16.3 th/mm3 (1.8-7.7); Neut % (Auto) 89.9 % (16.0-70.0); Platelet Count 493 th/mm3 (150-450); Red Blood Count 4.26 mil/mm3 (4.00-5.30); Red Cell Distribution Width 14.4 % (11.6-17.2); White Blood Count 18.1 th/mm3 (4.0-11.0)
[2018-03-18 13:23] LABS: Alanine Aminotransferase 9 U/L (10-53); Albumin 2.2 g/dL (3.4-5.0); Anion Gap 15 meq/L (5-15); Aspartate Aminotransferase 19 U/L (15-37); Blood Urea Nitrogen 75 mg/dL (7-18); Calcium 8.7 mg/dL (8.5-10.1); Carbon Dioxide 25.7 meq/L (21.0-32.0); Chloride 96 meq/L (98-107); Glomerular Filtration Rate 7 mL/min (>89); Glucose,Random 94 mg/dL (74-106); Potassium 3.5 meq/L (3.5-5.1); Sodium 137 meq/L (136-145)
[2018-03-18 13:25] LABS: Alkaline Phosphatase 115 U/L (45-117)
[2018-03-19 07:32] LABS: Baso % (Auto) 0.2 % (0.0-2.0); Eos # (Auto) 0.1 th/mm3 (0.0-0.4); Eos % (Auto) 0.3 % (0.0-4.0); Hematocrit 29.1 % (35.0-46.0); Lymph % (Auto) 5.3 % (9.0-44.0); Mean Corpuscular HGB Conc 34.4 % (32.0-36.0); Mean Corpuscular Hemoglobin 30.6 pg (27.0-34.0); Mean Corpuscular Volume 88.8 fL (80.0-100.0); Mean Platelet Volume 8.4 fL (7.0-11.0); Mono # (Auto) 1.1 th/mm3 (0.0-0.9); Mono % (Auto) 5.8 % (0.0-8.0); Neut # (Auto) 17.5 th/mm3 (1.8-7.7); Neut % (Auto) 88.4 % (16.0-70.0); Platelet Count 544 th/mm3 (150-450); Red Blood Count 3.28 mil/mm3 (4.00-5.30); Red Cell Distribution Width 14.1 % (11.6-17.2); White Blood Count 19.8 th/mm3 (4.0-11.0)
[2018-03-19] MEDS: Insulin NovoLOG Aspart Correctional Sugar Inj SQ SCH ×4 (08:05→21:42)
[2018-03-19 08:06] LABS: Albumin 2.1 g/dL (3.4-5.0); Calcium 8.9 mg/dL (8.5-10.1); Carbon Dioxide 26.1 meq/L (21.0-32.0); Phosphorus 5.6 mg/dL (2.5-4.9); Potassium 3.8 meq/L (3.5-5.1)
[2018-03-20 08:06] LABS: Albumin 2.2 g/dL (3.4-5.0); Carbon Dioxide 23.9 meq/L (21.0-32.0); Phosphorus 5.6 mg/dL (2.5-4.9); Potassium 3.9 meq/L (3.5-5.1)
[2018-03-20] MEDS: Heparin 10,000 UNITS/10 ML Vial (for IV use) OTHER PRN (12:00)
[2018-03-20] MEDS: Insulin NovoLOG Aspart Correctional Sugar Inj SQ SCH ×3 (14:00→21:00)
[2018-03-20] MEDS ORDERED: Vancomycin Inj 1,000 MG in Sodium Chlor 0.9% Inj 250 ML IV.SIG ONE (19:29)
[2018-03-21] MEDS: Insulin NovoLOG Aspart Correctional Sugar Inj SQ SCH ×4 (08:56→22:56)
[2018-03-21 10:00] LABS: Albumin 2.2 g/dL (3.4-5.0); Calcium 8.7 mg/dL (8.5-10.1); Carbon Dioxide 26.6 meq/L (21.0-32.0); Phosphorus 4.4 mg/dL (2.5-4.9); Potassium 4.1 meq/L (3.5-5.1)
[2018-03-21] MEDS: Heparin 10,000 UNITS/10 ML Vial (for IV use) OTHER PRN (16:30)
[2018-03-22] MEDS: Insulin NovoLOG Aspart Correctional Sugar Inj SQ SCH ×4 (08:00→20:55)
[2018-03-22 09:00] LABS: Albumin 2.3 g/dL (3.4-5.0); Calcium 8.7 mg/dL (8.5-10.1); Carbon Dioxide 28.2 meq/L (21.0-32.0)
[2018-03-22 09:01] LABS: Phosphorus 4.1 mg/dL (2.5-4.9)
[2018-03-23 08:12] LABS: Albumin 2.2 g/dL (3.4-5.0); Calcium 8.7 mg/dL (8.5-10.1); Carbon Dioxide 26.5 meq/L (21.0-32.0); Phosphorus 5.5 mg/dL (2.5-4.9); Potassium 4.5 meq/L (3.5-5.1)
[2018-03-23 09:04] LABS: Baso # (Auto) 0.1 th/mm3 (0.0-0.2); Baso % (Auto) 0.8 % (0.0-2.0); Eos % (Auto) 0.3 % (0.0-4.0); Hematocrit 23.9 % (35.0-46.0); Hemoglobin 8.1 gm/dL (11.6-15.3); Lymph # (Auto) 1.8 th/mm3 (1.0-4.8); Lymph % (Auto) 14.7 % (9.0-44.0); Mean Corpuscular HGB Conc 34.1 % (32.0-36.0); Mean Corpuscular Volume 90.9 fL (80.0-100.0); Mean Platelet Volume 8.3 fL (7.0-11.0); Mono # (Auto) 1.3 th/mm3 (0.0-0.9); Mono % (Auto) 10.9 % (0.0-8.0); Neut # (Auto) 8.9 th/mm3 (1.8-7.7); Neut % (Auto) 73.3 % (16.0-70.0); Platelet Count 444 th/mm3 (150-450); Red Blood Count 2.63 mil/mm3 (4.00-5.30); White Blood Count 12.1 th/mm3 (4.0-11.0)
[2018-03-23] MEDS: Insulin NovoLOG Aspart Correctional Sugar Inj SQ SCH ×4 (10:11→20:49)
[2018-03-23] MEDS ORDERED: levoFLOXacin 500 MG Tablet PO ONE (14:00)
[2018-03-24] MEDS: Insulin NovoLOG Aspart Correctional Sugar Inj SQ SCH ×4 (11:59→20:27)
[2018-03-24 13:02] LABS: Activated Partial Thrombo Time 26.1 sec (24.3-30.1); Prothrombin Time 10.5 sec (9.8-11.6)
[2018-03-24] MEDS ORDERED: fentaNYL Citrate Inj 100 MCG/2 ML Ampul ONE ×2 (14:07→14:28)
[2018-03-24] MEDS ORDERED: Lidocaine 1%/Epinephrine 1:100,000 Inj 20 ML Vial ONE ×2 (14:10→16:01)
[2018-03-24] MEDS ORDERED: Thrombin Topical Soln 5,000 UNIT Vial TOPICAL ONE (14:37)
[2018-03-24] MEDS ORDERED: *Heparin 10,000 UNITS/10 ML Vial Periprocedural ONLY ONE (16:01)
[2018-03-24] MEDS ORDERED: Heparin Central Flush 100 UNIT/ML 5 ML Vial IV.FLUSH PRN (16:40)
[2018-03-24 17:49] LABS: Baso # (Auto) 0.1 th/mm3 (0.0-0.2); Baso % (Auto) 0.5 % (0.0-2.0); Eos % (Auto) 0.2 % (0.0-4.0); Hematocrit 22.9 % (35.0-46.0); Hemoglobin 7.7 gm/dL (11.6-15.3); Lymph # (Auto) 2.1 th/mm3 (1.0-4.8); Mean Corpuscular HGB Conc 33.8 % (32.0-36.0); Mean Corpuscular Hemoglobin 30.8 pg (27.0-34.0); Mean Corpuscular Volume 91.1 fL (80.0-100.0); Mean Platelet Volume 8.3 fL (7.0-11.0); Mono # (Auto) 1.3 th/mm3 (0.0-0.9); Mono % (Auto) 11.5 % (0.0-8.0); Neut # (Auto) 7.7 th/mm3 (1.8-7.7); Neut % (Auto) 68.8 % (16.0-70.0); Platelet Count 382 th/mm3 (150-450); Red Blood Count 2.52 mil/mm3 (4.00-5.30); Red Cell Distribution Width 14.3 % (11.6-17.2); White Blood Count 11.2 th/mm3 (4.0-11.0)
[2018-03-24] MEDS: QUEtiapine 25 MG Tablet PO SCH (20:25)
[2018-03-25] MEDS: Insulin NovoLOG Aspart Correctional Sugar Inj SQ SCH ×3 (17:17→20:49)
[2018-03-25] MEDS: levoFLOXacin 250 MG Tablet PO SCH (17:18)
[2018-03-25] MEDS: QUEtiapine 25 MG Tablet PO SCH (20:46)
[2018-03-26 07:14] LABS: Hematocrit 22.3 % (35.0-46.0); Hemoglobin 7.5 gm/dL (11.6-15.3); Mean Corpuscular HGB Conc 33.5 % (32.0-36.0); Mean Corpuscular Volume 92.6 fL (80.0-100.0); Platelet Count 320 th/mm3 (150-450); Red Blood Count 2.41 mil/mm3 (4.00-5.30); Red Cell Distribution Width 14.2 % (11.6-17.2); White Blood Count 7.9 th/mm3 (4.0-11.0)
[2018-03-26 07:48] LABS: Albumin 2.3 g/dL (3.4-5.0); Calcium 8.6 mg/dL (8.5-10.1); Phosphorus 4.6 mg/dL (2.5-4.9); Potassium 4.2 meq/L (3.5-5.1)
[2018-03-26] MEDS: Insulin NovoLOG Aspart Correctional Sugar Inj SQ SCH ×4 (08:13→21:36)
[2018-03-26] MEDS ORDERED: Acetaminophen 325 MG Tablet PO PRN (09:24)
[2018-03-26] MEDS ORDERED: Sodium Chlor 0.9% Inj 250 ML IV.SIG SCH (10:00)
[2018-03-26] MEDS: QUEtiapine 25 MG Tablet PO SCH (21:35)
[2018-03-27 00:52] LABS: Hematocrit 26.5 % (35.0-46.0)
[2018-03-27] MEDS: Insulin NovoLOG Aspart Correctional Sugar Inj SQ SCH ×4 (09:29→21:39)
[2018-03-27] MEDS: levoFLOXacin 250 MG Tablet PO SCH (09:30)
[2018-03-27 09:59] LABS: Baso # (Auto) 0.1 th/mm3 (0.0-0.2); Baso % (Auto) 1.1 % (0.0-2.0); Eos # (Auto) 0.1 th/mm3 (0.0-0.4); Eos % (Auto) 1.2 % (0.0-4.0); Hematocrit 25.5 % (35.0-46.0); Hemoglobin 8.8 gm/dL (11.6-15.3); Lymph # (Auto) 1.7 th/mm3 (1.0-4.8); Lymph % (Auto) 21.4 % (9.0-44.0); Mean Corpuscular HGB Conc 34.4 % (32.0-36.0); Mean Corpuscular Hemoglobin 30.7 pg (27.0-34.0); Mean Corpuscular Volume 89.2 fL (80.0-100.0); Mono # (Auto) 1.2 th/mm3 (0.0-0.9); Mono % (Auto) 14.7 % (0.0-8.0); Neut % (Auto) 61.6 % (16.0-70.0); Platelet Count 305 th/mm3 (150-450); Red Blood Count 2.86 mil/mm3 (4.00-5.30); White Blood Count 8.1 th/mm3 (4.0-11.0)
[2018-03-27 10:26] LABS: Albumin 2.4 g/dL (3.4-5.0); Calcium 8.7 mg/dL (8.5-10.1); Carbon Dioxide 23.7 meq/L (21.0-32.0); Phosphorus 5.2 mg/dL (2.5-4.9); Potassium 4.1 meq/L (3.5-5.1)
[2018-03-27] MEDS: QUEtiapine 25 MG Tablet PO SCH (21:39)
[2018-03-28] MEDS: Insulin NovoLOG Aspart Correctional Sugar Inj SQ SCH ×4 (08:26→20:46)
[2018-03-28] MEDS: Elvitegravir/Cobi/Emtricit/Tenof 150/150/200/300 MG Tablet PO SCH (13:31)
[2018-03-28] MEDS: QUEtiapine 25 MG Tablet PO SCH (20:46)
[2018-03-29] MEDS: levoFLOXacin 250 MG Tablet PO SCH (08:33)
[2018-03-29] MEDS: Insulin NovoLOG Aspart Correctional Sugar Inj SQ SCH ×4 (09:32→20:41)
[2018-03-29] MEDS: Elvitegravir/Cobi/Emtricit/Tenof 150/150/200/300 MG Tablet PO SCH (13:59)
[2018-03-29] MEDS: QUEtiapine 25 MG Tablet PO SCH (20:40)
[2018-03-30 06:58] LABS: Albumin 2.5 g/dL (3.4-5.0); Calcium 8.7 mg/dL (8.5-10.1); Carbon Dioxide 22.8 meq/L (21.0-32.0); Phosphorus 4.3 mg/dL (2.5-4.9); Potassium 4.3 meq/L (3.5-5.1)
[2018-03-30] MEDS: Insulin NovoLOG Aspart Correctional Sugar Inj SQ SCH ×4 (08:42→21:06)
[2018-03-30] MEDS: Heparin 10,000 UNITS/10 ML Vial (for IV use) OTHER PRN (10:59)
[2018-03-30] MEDS: Elvitegravir/Cobi/Emtricit/Tenof 150/150/200/300 MG Tablet PO SCH (13:06)
[2018-03-30] MEDS: QUEtiapine 25 MG Tablet PO SCH (21:05)
[2018-03-31] MEDS: levoFLOXacin 250 MG Tablet PO SCH (08:54)
[2018-03-31] MEDS: Insulin NovoLOG Aspart Correctional Sugar Inj SQ SCH ×4 (08:54→21:44)
[2018-03-31] MEDS: Elvitegravir/Cobi/Emtricit/Tenof 150/150/200/300 MG Tablet PO SCH (11:55)
[2018-03-31 13:27] LABS: Calcium 8.4 mg/dL (8.5-10.1); Carbon Dioxide 28.5 meq/L (21.0-32.0); Potassium 4.3 meq/L (3.5-5.1)
[2018-03-31] MEDS: QUEtiapine 25 MG Tablet PO SCH (21:42)
[2018-04-01 06:40] LABS: Albumin 2.5 g/dL (3.4-5.0); Calcium 8.5 mg/dL (8.5-10.1); Phosphorus 3.9 mg/dL (2.5-4.9); Potassium 4.3 meq/L (3.5-5.1)
[2018-04-01] MEDS: Insulin NovoLOG Aspart Correctional Sugar Inj SQ SCH ×4 (08:37→21:39)
[2018-04-01] MEDS: Elvitegravir/Cobi/Emtricit/Tenof 150/150/200/300 MG Tablet PO SCH (12:16)
[2018-04-01] MEDS: QUEtiapine 25 MG Tablet PO SCH (21:38)
[2018-04-02 07:10] LABS: Albumin 2.7 g/dL (3.4-5.0); Calcium 8.7 mg/dL (8.5-10.1); Carbon Dioxide 24.7 meq/L (21.0-32.0); Phosphorus 4.2 mg/dL (2.5-4.9); Potassium 4.8 meq/L (3.5-5.1)
[2018-04-02] MEDS: Insulin NovoLOG Aspart Correctional Sugar Inj SQ SCH ×4 (07:54→20:33)
[2018-04-02] MEDS: levoFLOXacin 250 MG Tablet PO SCH (09:08)
[2018-04-02] MEDS: Elvitegravir/Cobi/Emtricit/Tenof 150/150/200/300 MG Tablet PO SCH (13:44)
[2018-04-02] MEDS: QUEtiapine 25 MG Tablet PO SCH (20:33)
[2018-04-03] MEDS: Insulin NovoLOG Aspart Correctional Sugar Inj SQ SCH ×4 (07:44→21:27)
[2018-04-03 07:58] LABS: Albumin 2.7 g/dL (3.4-5.0); Carbon Dioxide 21.9 meq/L (21.0-32.0); Phosphorus 4.5 mg/dL (2.5-4.9); Potassium 4.5 meq/L (3.5-5.1)
[2018-04-03] MEDS: Elvitegravir/Cobi/Emtricit/Tenof 150/150/200/300 MG Tablet PO SCH (11:47)
[2018-04-03] MEDS: QUEtiapine 25 MG Tablet PO SCH (21:26)
[2018-04-04 05:45] LABS: Phosphorus 4.7 mg/dL (2.5-4.9); Potassium 4.7 meq/L (3.5-5.1)
[2018-04-04 05:46] LABS: Albumin 2.6 g/dL (3.4-5.0); Calcium 8.3 mg/dL (8.5-10.1); Carbon Dioxide 18.6 meq/L (21.0-32.0)
[2018-04-04] MEDS: Insulin NovoLOG Aspart Correctional Sugar Inj SQ SCH ×4 (08:11→20:32)
[2018-04-04] MEDS: levoFLOXacin 250 MG Tablet PO SCH (08:11)
[2018-04-04] MEDS: Elvitegravir/Cobi/Emtricit/Tenof 150/150/200/300 MG Tablet PO SCH (12:41)
[2018-04-04] MEDS: QUEtiapine 25 MG Tablet PO SCH (20:32)
[2018-04-05] MEDS: Insulin NovoLOG Aspart Correctional Sugar Inj SQ SCH ×4 (08:18→21:59)
[2018-04-05 11:32] LABS: Calcium 8.5 mg/dL (8.5-10.1); Carbon Dioxide 20.8 meq/L (21.0-32.0); Potassium 4.5 meq/L (3.5-5.1)
[2018-04-05] MEDS: Elvitegravir/Cobi/Emtricit/Tenof 150/150/200/300 MG Tablet PO SCH (11:55)
[2018-04-05] MEDS: QUEtiapine 25 MG Tablet PO SCH (20:04)
[2018-04-06 07:41] LABS: Calcium 8.9 mg/dL (8.5-10.1); Carbon Dioxide 19.8 meq/L (21.0-32.0); Potassium 4.8 meq/L (3.5-5.1)
[2018-04-06 07:42] LABS: Phosphorus 4.8 mg/dL (2.5-4.9)
[2018-04-06] MEDS: Insulin NovoLOG Aspart Correctional Sugar Inj SQ SCH ×2 (08:22→17:01)
[2018-04-06] MEDS: levoFLOXacin 250 MG Tablet PO SCH (08:23)
[2018-04-06] MEDS: Elvitegravir/Cobi/Emtricit/Tenof 150/150/200/300 MG Tablet PO SCH (17:01)
== END 2018-04-06 12:20 | disposition home or self-care (01) ==
LOC: NEPE 17:09 → NEDA 20:17 → HCIS 22:28 → N04 03-17 19:10 → UNDODISIN 04-03 12:58
PROVIDERS: ADMIT Internal Medicine; ATTEND Internal Medicine

== ENCOUNTER 2018-06-09 13:28 | Inpatient (IN) ==
[2018-06-09] MEDS ORDERED: MethylPREDNISolone Sod Succinate Inj 125 MG/2 ML Vial IV.PUSH ONE (13:52)
--- NOTE | 2018-06-09 13:56 | ED ---
HPI General Chief complaint: Respiratory Symptoms Stated complaint: SOB Time Seen by Provider: 06/09/18 13:48 History of Present Illness HPI narrative: 68-year-old female with a history of HIV, hypertension, COPD, hyperlipidemia, schizophrenia presents to the emergency department for evaluation of shortness of breath and cough for 3 days. The patient states that she has chest pressure and tightness. States she has had a slight cough for the past 3 days. States she has had swelling of lower legs since day. Denies any fever, chills, nausea, vomiting, abdominal pain, chest pain, lightheadedness or dizziness. States that she used her inhalers at home last night without relief of symptoms. She does admit to continuing to smoke cigarettes. No other complaints or concerns. PCP Dr. Santo. Related Data Home Medications Medication Instructions Recorded Confirmed quetiapine [Seroquel] 50 mg PO HS 03/16/18 06/09/18 abacavir 300 mg PO BID 06/09/18 06/09/18 amlodipine 10 mg PO DAILY 06/09/18 06/09/18 darunavir ethanolate [Prezista] 600 mg PO Q12HR 06/09/18 06/09/18 fluticasone-vilanterol [Breo 1 inh INHALATION DAILY 06/09/18 06/09/18 Ellipta] lisinopril 20 mg PO DAILY 06/09/18 06/09/18 perphenazine 4 mg PO BID 06/09/18 06/09/18 ritonavir [Norvir] 100 mg PO Q12HR 06/09/18 06/09/18 tramadol 50 mg PO QID PRN 06/09/18 06/09/18 zolpidem 5 mg PO HS 06/09/18 06/09/18 Allergies Allergy/AdvReac Type Severity Reaction Status Date / Time benztropine Allergy Severe Hives Verified 06/09/18 13:52 celecoxib Allergy Severe Hives Verified 06/09/18 13:52 citalopram Allergy Severe Hives Verified 06/09/18 13:52 diphenhydramine Allergy Severe Hives Verified 06/09/18 13:52 haloperidol Allergy Severe Hives Verified 06/09/18 13:52 penicillin G Allergy Severe Hives Verified 06/09/18 13:52 propoxyphene Allergy Severe Hives Verified 06/09/18 13:42 quetiapine Allergy Severe Hives Verified 06/09/18 13:52 Sulfa (Sulfonamide Allergy Severe Hives Verified 06/09/18 13:52 Antibiotics) trifluoperazine Allergy Severe Hives Verified 06/09/18 13:52 trihexyphenidyl Allergy Severe Hives Verified 06/09/18 13:52 trimethobenzamide Allergy Severe Hives Verified 06/09/18 13:52 Review of Systems ROS: all other systems reviewed are negative PMFSH Social History Social History Substance History: No History of Abuse Second Hand Smoke Exposure: No Smoking Status: Current every day smoker Tobacco Type: Cigarettes How Often Do You Have a Drink Containing Alcohol: Never Recent Travel in [facility] within the Last 8 Weeks: No Recent Out of Country Travel within the Last 8 Weeks: No Immunization History Tetanus Immunization: >5 Years Exam Narrative Exam Narrative: GENERAL: Well-nourished and well-developed female with moderate work of breathing. SKIN: Warm and dry. HEAD: Normocephalic and atraumatic. EYES: No injection, drainage, or hyphema noted. PERRLA. EOMI. ENT: No nasal drainage noted. Oropharynx is clear and the TMs are normal with good landmarks. NECK: Supple and the trachea is midline. CARDIOVASCULAR: Regular rate and rhythm. RESPIRATORY: Bilaterally rhonchi throughout with decreased breath sounds at bases. No crackles. GASTROINTESTINAL: Abdomen is soft, non-tender, and nondistended. MUSCULOSKELETAL: No obvious deformities, swelling, cyanosis, or ecchymosis is present throughout the upper and lower extremities. Patient has full range of motion without any signs of neurovascular compromise. Distal pulses are 2+ throughout. NEUROLOGICAL: Awake, alert, and oriented. Normal speech and gait. Cranial nerves are grossly intact. Course Initial Documented Vital Signs Temperature 98.8 F 06/09/18 13:39 Pulse Rate 92 H 06/09/18 13:39 Respiratory Rate 36 H 06/09/18 13:39 Blood Pressure 140/65 06/09/18 13:39 Pulse Oximetry 88 L 06/09/18 13:39 Last Documented Vital Signs Temperature 100.0 F H 06/09/18 20:00 Pulse Rate 88 06/09/18 20:00 Respiratory Rate 22 06/09/18 20:00 Blood Pressure 120/60 11/27/18 20:00 Pulse Oximetry 92 L 06/09/18 20:00 Medical Decision Making MDM Narrative Medical decision making narrative: 68-year-old female presents to the ED for evaluation of shortness of breath for 3 days. Patient is afebrile. Patient is hypoxic with initial oxygen saturation 88% on room air. Respiratory rate was also increased. CBC shows anemia with hemoglobin 9.9, hematocrit 30.2. White count slightly elevated 11.2. CMP shows Cr elevated at 2.18, BUN 19, GFR 27. Troponin is less than 0.02. Chest x-ray shows probable CHF which is new compared to previous chest x-ray in March 2018. BNP is pending. Patient reassessed and reports some improvement of symptoms with nebulizers. Patient's oxygen has been stable on 2 L of O2 however she does desat to the high 80s when off of oxygen. Patient administered Lasix 20 mg IV. I spoke with Dr. Hernandez [facility] who accepts patient for admission. I discussed the case with my attending physician Dr. Brown who is aware of the patients history, physical examination findings, and treatment plan. Medical Screen Exam Complete: Yes Emergency Medical Condition: Yes Differential Diagnosis Differential Diagnosis: COPD exacerbation versus pneumonia versus CHF versus Lab Data Result diagrams: 06/09/18 15:42 06/09/18 14:00 Lab Results 06/09/18 06/09/18 06/09/18 Range/Units 14:00 14:00 14:00 WBC (4.0-11.0) th/mm3 RBC (4.00-5.30) mil/mm3 Hgb (11.6-15.3) gm/dL Hct (35.0-46.0) % MCV (80.0-100.0) fL MCH (27.0-34.0) pg MCHC (32.0-36.0) % RDW (11.6-17.2) % Plt Count (150-450) th/mm3 MPV (7.0-11.0) fL Neut % (Auto) (16.0-70.0) % Lymph % (Auto) (9.0-44.0) % [place] % (Auto) (0.0-8.0) % Eos % (Auto) (0.0-4.0) % Baso % (Auto) (0.0-2.0) % Neut # (Auto) (1.8-7.7) th/mm3 Lymph # (Auto) (1.0-4.8) th/mm3 [place] # (Auto) (0.0-0.9) th/mm3 Eos # (Auto) (0.0-0.4) th/mm3 Baso # (Auto) (0.0-0.2) th/mm3 WBC Differential Differential Comment Puncture Site Patient Temperature O2 Saturation (90-100) % ABG pH (7.380-7.420) ABG pCO2 (38-42) mmHg ABG pO2 (61-120) mmHg ABG HCO3 (22-26) mmol/L ABG O2 Content (12.0-20.0) Vol % ABG Base Excess (-2-2) mmol/L ABG Methemoglobin (0-2) % Jason Test Hemoglobin (12.0-16.0) G/DL Carboxyhemoglobin (0-4) % Inspired O2 % Critical Value Sodium 141 (136-145) meq/L Potassium 4.9 (3.5-5.1) meq/L Chloride 112 H (98-107) meq/L Carbon Dioxide 24.7 (21.0-32.0) meq/L Anion Gap 4 L (5-15) meq/L BUN 19 H (7-18) mg/dL Creatinine 2.18 H (0.50-1.00) mg/dL Estimated GFR 27 L (>89) mL/min Random Glucose 113 H (74-106) mg/dL Calcium 8.5 (8.5-10.1) mg/dL Total Bilirubin 0.4 (0.2-1.0) mg/dL AST 31 (15-37) U/L ALT 22 (10-53) U/L Alkaline Phosphatase 134 H (45-117) U/L Total Creatine Kinase (26-192) U/L Troponin I Less than 0.02 L (0.02-0.05) ng/mL B-Natriuretic Peptide 554 H (0-100) pg/mL Total Protein 7.7 (6.4-8.2) g/dL Albumin 3.5 (3.4-5.0) g/dL Urine Color (Yellw/Straw) Urine Clarity (Clear) Urine pH (5.0-8.5) Ur Specific [place] (1.002-1.035) Urine Protein (Neg-Trace) mg/dL Urine Glucose (UA) (Negative) mg/dL Urine Ketones (Negative) mg/dL Urine Occult Blood (Negative) Urine Nitrate (Negative) Urine Bilirubin (Negative) Urine Urobilinogen (Less than 2) mg/dL Ur Leukocyte Esterase (Negative) Urine RBC (0-3) /hpf Urine WBC (0-5) /hpf Ur Squamous Epith Cells (0-5) /hpf Urine Bacteria (None) /hpf Urine Mucus (Occasional) /lpf Micro UA Comment Ur Microscopic Review Urine Culture Comments 06/09/18 06/09/18 06/09/18 Range/Units 14:46 15:42 16:35 WBC 11.2 H (4.0-11.0) th/mm3 RBC 3.04 L (4.00-5.30) mil/mm3 Hgb 9.9 L (11.6-15.3) gm/dL Hct 30.2 L (35.0-46.0) % MCV 99.3 (80.0-100.0) fL MCH 32.6 (27.0-34.0) pg MCHC 32.8 (32.0-36.0) % RDW 15.0 (11.6-17.2) % Plt Count 319 (150-450) th/mm3 MPV 7.8 (7.0-11.0) fL Neut % (Auto) 79.7 H (16.0-70.0) % Lymph % (Auto) 13.7 (9.0-44.0) % [place] % (Auto) 6.1 (0.0-8.0) % Eos % (Auto) 0.2 (0.0-4.0) % Baso % (Auto) 0.3 (0.0-2.0) % Neut # (Auto) 9.0 H (1.8-7.7) th/mm3 Lymph # (Auto) 1.5 (1.0-4.8) th/mm3 [place] # (Auto) 0.7 (0.0-0.9) th/mm3 Eos # (Auto) 0.0 (0.0-0.4) th/mm3 Baso # (Auto) 0.0 (0.0-0.2) th/mm3 WBC Differential . Differential Comment Auto diff final Puncture Site Left radial Patient Temperature 98.6 O2 Saturation 77 L* (90-100) % ABG pH 7.44 H (7.380-7.420) ABG pCO2 36 L (38-42) mmHg ABG pO2 43 L* (61-120) mmHg ABG HCO3 24 (22-26) mmol/L ABG O2 Content 10.6 L (12.0-20.0) Vol % ABG Base Excess 0.5 (-2-2) mmol/L ABG Methemoglobin 0.5 (0-2) % Jason Test Present Hemoglobin 9.8 L (12.0-16.0) G/DL Carboxyhemoglobin 3.8 (0-4) % Inspired O2 21 % Critical Value Yes Sodium (136-145) meq/L Potassium (3.5-5.1) meq/L Chloride (98-107) meq/L Carbon Dioxide (21.0-32.0) meq/L Anion Gap (5-15) meq/L BUN (7-18) mg/dL Creatinine (0.50-1.00) mg/dL Estimated GFR (>89) mL/min Random Glucose (74-106) mg/dL Calcium (8.5-10.1) mg/dL Total Bilirubin (0.2-1.0) mg/dL AST (15-37) U/L ALT (10-53) U/L Alkaline Phosphatase (45-117) U/L Total Creatine Kinase (26-192) U/L Troponin I (0.02-0.05) ng/mL B-Natriuretic Peptide (0-100) pg/mL Total Protein (6.4-8.2) g/dL Albumin (3.4-5.0) g/dL Urine Color Yellow (Yellw/Straw) Urine Clarity Hazy H (Clear) Urine pH 5.0 (5.0-8.5) Ur Specific [place] 1.011 (1.002-1.035) Urine Protein 30 H (Neg-Trace) mg/dL Urine Glucose (UA) Negative (Negative) mg/dL Urine Ketones Negative (Negative) mg/dL Urine Occult Blood Negative (Negative) Urine Nitrate Negative (Negative) Urine Bilirubin Negative (Negative) Urine Urobilinogen Less than 2 (Less than 2) mg/dL Ur Leukocyte Esterase Small H (Negative) Urine RBC 1 (0-3) /hpf Urine WBC 28 H (0-5) /hpf Ur Squamous Epith Cells 3 (0-5) /hpf Urine Bacteria Moderate H (None) /hpf Urine Mucus Few H (Occasional) /lpf Micro UA Comment Culture indicated Ur Microscopic Review Not Reportable Urine Culture Comments Culture indicated 06/09/18 Range/Units 20:11 WBC (4.0-11.0) th/mm3 RBC (4.00-5.30) mil/mm3 Hgb (11.6-15.3) gm/dL Hct (35.0-46.0) % MCV (80.0-100.0) fL MCH (27.0-34.0) pg MCHC (32.0-36.0) % RDW (11.6-17.2) % Plt Count (150-450) th/mm3 MPV (7.0-11.0) fL Neut % (Auto) (16.0-70.0) % Lymph % (Auto) (9.0-44.0) % Kings % (Auto) (0.0-8.0) % Eos % (Auto) (0.0-4.0) % Baso % (Auto) (0.0-2.0) % Neut # (Auto) (1.8-7.7) th/mm3 Lymph # (Auto) (1.0-4.8) th/mm3 Kings # (Auto) (0.0-0.9) th/mm3 Eos # (Auto) (0.0-0.4) th/mm3 Baso # (Auto) (0.0-0.2) th/mm3 WBC Differential Differential Comment Puncture Site Patient Temperature O2 Saturation (90-100) % ABG pH (7.380-7.420) ABG pCO2 (38-42) mmHg ABG pO2 (61-120) mmHg ABG HCO3 (22-26) mmol/L ABG O2 Content (12.0-20.0) Vol % ABG Base Excess (-2-2) mmol/L ABG Methemoglobin (0-2) % Jason Test Hemoglobin (12.0-16.0) G/DL Carboxyhemoglobin (0-4) % Inspired O2 % Critical Value Sodium (136-145) meq/L Potassium (3.5-5.1) meq/L Chloride (98-107) meq/L Carbon Dioxide (21.0-32.0) meq/L Anion Gap (5-15) meq/L BUN (7-18) mg/dL Creatinine (0.50-1.00) mg/dL Estimated GFR (>89) mL/min Random Glucose (74-106) mg/dL Calcium (8.5-10.1) mg/dL Total Bilirubin (0.2-1.0) mg/dL AST (15-37) U/L ALT (10-53) U/L Alkaline Phosphatase (45-117) U/L Total Creatine Kinase 83 (26-192) U/L Troponin I Less than 0.02 L (0.02-0.05) ng/mL B-Natriuretic Peptide (0-100) pg/mL Total Protein (6.4-8.2) g/dL Albumin (3.4-5.0) g/dL Urine Color (Yellw/Straw) Urine Clarity (Clear) Urine pH (5.0-8.5) Ur Specific [place] (1.002-1.035) Urine Protein (Neg-Trace) mg/dL Urine Glucose (UA) (Negative) mg/dL Urine Ketones (Negative) mg/dL Urine Occult Blood (Negative) Urine Nitrate (Negative) Urine Bilirubin (Negative) Urine Urobilinogen (Less than 2) mg/dL Ur Leukocyte Esterase (Negative) Urine RBC (0-3) /hpf Urine WBC (0-5) /hpf Ur Squamous Epith Cells (0-5) /hpf Urine Bacteria (None) /hpf Urine Mucus (Occasional) /lpf Micro UA Comment Ur Microscopic Review Urine Culture Comments Imaging Data Radiologist's impression: Chest X-Ray 06/09/18 13:52 CONCLUSION: Probable CHF. This is new compared to previous of 03/16/2018. Discharge Plan Discharge Disposition Patient Disposition: 30 Still Patient Discharge Details Diagnosis: COPD (chronic obstructive pulmonary disease), CHF (congestive heart failure), Hypoxia Physicians Team ED Provider: Basilio Brown ED Midlevel Provider: Carmen Wilde Primary Care Provider: UNKNOWN, Attending Provider: Alireza Hernandez Status ED Status: Left Department Discharge Information Discharge Date/Time: 06/09/18 17:50
[2018-06-09] MEDS ORDERED: Mag Sulf 1 gm/100 ml Premix 100 ML IV.SIG ONE (14:15)
[2018-06-09] MEDS ORDERED: Levofloxacin 250 mg Premix Inj 250 MG/50 ML PIGGYBACK IV.SIG ONE (14:16)
--- NOTE | 2018-06-09 14:20 | XR ---
EXAM DATE: 06/09/2018 2:15 PM EST AGE/SEX: 68 years / Female INDICATIONS: Short of breath CLINICAL DATA: This is the patient's initial encounter. Patient reports that signs and symptoms have been present for 1 day and indicates a pain score of 10/10. MEDICAL/SURGICAL HISTORY: Hypertension. renal failure . permacath COMPARISON: [facility], CHEST 1V SINGLE AP, 03/16/2018. . FINDINGS: The heart is enlarged. There are small bilateral effusions and diffuse interstitial prominence sugges ting congestive failure. There is atelectasis in both lung bases. The visualized bony structures are grossly intact. CONCLUSION: Probable CHF. This is new compared to previous of 03/16/2018. Electronically signed by: Titus Lowry MD 06/09/2018 2:18 PM EST
[2018-06-09 14:36] LABS: Alanine Aminotransferase 22 U/L (10-53); Albumin 3.5 g/dL (3.4-5.0); Anion Gap 4 meq/L (5-15); Aspartate Aminotransferase 31 U/L (15-37); Blood Urea Nitrogen 19 mg/dL (7-18); Calcium 8.5 mg/dL (8.5-10.1); Carbon Dioxide 24.7 meq/L (21.0-32.0); Chloride 112 meq/L (98-107); Glomerular Filtration Rate 27 mL/min (>89); Glucose,Random 113 mg/dL (74-106); Potassium 4.9 meq/L (3.5-5.1); Sodium 141 meq/L (136-145)
[2018-06-09 14:37] LABS: Alkaline Phosphatase 134 U/L (45-117); Total Protein 7.7 g/dL (6.4-8.2)
[2018-06-09 14:55] LABS: ABG Base Excess 0.5 mmol/L (-2-2); ABG PCO2 36 mmHg (38-42); ABG PO2 43 mmHg (61-120)
[2018-06-09 15:59] LABS: Baso % (Auto) 0.3 % (0.0-2.0); Eos % (Auto) 0.2 % (0.0-4.0); Hematocrit 30.2 % (35.0-46.0); Hemoglobin 9.9 gm/dL (11.6-15.3); Lymph # (Auto) 1.5 th/mm3 (1.0-4.8); Lymph % (Auto) 13.7 % (9.0-44.0); Mean Corpuscular HGB Conc 32.8 % (32.0-36.0); Mean Corpuscular Hemoglobin 32.6 pg (27.0-34.0); Mean Corpuscular Volume 99.3 fL (80.0-100.0); Mean Platelet Volume 7.8 fL (7.0-11.0); Mono # (Auto) 0.7 th/mm3 (0.0-0.9); Mono % (Auto) 6.1 % (0.0-8.0); Neut % (Auto) 79.7 % (16.0-70.0); Platelet Count 319 th/mm3 (150-450); Red Blood Count 3.04 mil/mm3 (4.00-5.30); White Blood Count 11.2 th/mm3 (4.0-11.0)
--- NOTE | 2018-06-09 16:28 | P.HP ---
History of Present Illness Primary Care Physician: UNKNOWN Chief Complaint: Shortness of breath History of Present Illness: This is a pleasant 68 y/o Female with HIV, Hypertension, COPD, Hyperlipidemia, Schizophrenia, who came to Emergency Room for evaluation of respiratory symptoms, she has developed shortness of breath and cough for the last 3 days, The patient states that she has chest pressure and tightness. States she has had a slight cough for the past 3 days. States she has had swelling of lower legs since five days ago. Denies any fever , chills, nausea, vomiting, abdominal pain, chest pain, lightheadedness or dizziness. States that she used her inhalers at home last night without relief of symptoms. She does admit to continuing to smoke cigarettes. Review of Systems All other systems reviewed negative except as stated in HPI PMFSH - History History Provided By: Patient - Medical History Medical History: Medical History (Last Reviewed 06/09/18 @ 13:54 by Karley Milner) H/O: hysterectomy HIV disease Hypertension Schizophrenia - Surgical History Surgical History: Surgical History (Last Reviewed 06/09/18 @ 13:54 by Karley Milner) S/P cholecystectomy - Family History Family History: Family History (Last Reviewed 03/20/18 @ 11:54 by Odilia Ornelas) Other Diabetes mellitus - Tobacco History Second Hand Smoke Exposure: Yes Tobacco Use In Past 30 Days: Yes Smoking Status: Current every day smoker Tobacco Type: Cigarettes - Alcohol History How Often Do You Have a Drink Containing Alcohol: Never - Substance Use History Substance History: No History of Abuse - Travel History Recent Travel in the [place] Within the Last 8 Weeks: No Recent Travel Out of the Country Within the Last 8 Weeks: No - Immunization History Tetanus Immunization: >5 Years Medications and Allergies Active Medications: Active Medications Sodium Chloride (Ns Flush) 2 ml IV.FLUSH PRN PRN PRN Reason: FLUSH AFTER USING IV ACCESS Last Admin: 06/09/18 14:58 Dose: 2 ml Allergies Allergy/AdvReac Type Severity Reaction Status Date / Time benztropine Allergy Severe Hives Verified 06/09/18 13:52 celecoxib Allergy Severe Hives Verified 06/09/18 13:52 citalopram Allergy Severe Hives Verified 06/09/18 13:52 diphenhydramine Allergy Severe Hives Verified 06/09/18 13:52 haloperidol Allergy Severe Hives Verified 06/09/18 13:52 penicillin G Allergy Severe Hives Verified 06/09/18 13:52 propoxyphene Allergy Severe Hives Verified 06/09/18 13:42 quetiapine Allergy Severe Hives Verified 06/09/18 13:52 Sulfa (Sulfonamide Allergy Severe Hives Verified 06/09/18 13:52 Antibiotics) trifluoperazine Allergy Severe Hives Verified 06/09/18 13:52 trihexyphenidyl Allergy Severe Hives Verified 06/09/18 13:52 trimethobenzamide Allergy Severe Hives Verified 06/09/18 13:52 Home Medications Medication Instructions Recorded Confirmed Type quetiapine [Seroquel] 50 mg PO HS 03/16/18 06/09/18 History abacavir 300 mg PO BID 06/09/18 06/09/18 History amlodipine 10 mg PO DAILY 06/09/18 06/09/18 History darunavir ethanolate [Prezista] 600 mg PO Q12HR 06/09/18 06/09/18 History fluticasone-vilanterol [Breo 1 inh INHALATION DAILY 06/09/18 06/09/18 History Ellipta] lisinopril 20 mg PO DAILY 06/09/18 06/09/18 History perphenazine 4 mg PO BID 06/09/18 06/09/18 History ritonavir [Norvir] 100 mg PO Q12HR 06/09/18 06/09/18 History tramadol 50 mg PO QID PRN 06/09/18 06/09/18 History zolpidem 5 mg PO HS 06/09/18 06/09/18 History Exam Vital signs: Vital Signs 06/09/18 13:39 06/09/18 13:53 06/09/18 14:28 Temperature 98.8 F Pulse Rate 92 H 89 78 Respiratory Rate 36 H 23 Blood Pressure 140/65 Pulse Oximetry 88 L 95 06/09/18 14:41 06/09/18 14:45 06/09/18 15:00 Temperature 97.8 F Pulse Rate 89 84 90 Respiratory Rate 24 22 21 Blood Pressure 140/67 Pulse Oximetry 94 L 06/09/18 15:13 06/09/18 15:44 Temperature 97.9 F Pulse Rate 91 H Respiratory Rate 20 Blood Pressure 140/64 Pulse Oximetry 94 L 95 Intake & Output 06/08/18 06/09/18 06/09/18 18:59 06:59 18:59 Intake Total 100 / 100 Balance 100 / 100 Weight 67.585 kg Intake: IV 100 / 100 Magnesium Sulfate 1 gm/D5W 100 100 / 100 ml Premix 100 ML @ 100 mls/hr IV.SIG ONCE ONE Rx#:[id number] Narrative: GENERAL: Well-nourished and well-developed female with moderate work of breathing. SKIN: Warm and dry. HEAD: Normocephalic and atraumatic. EYES: No injection, drainage, or hyphema noted. PERRLA. EOMI. ENT: No nasal drainage noted. Oropharynx is clear and the TMs are normal with good landmarks. NECK: Supple and the trachea is midline. CARDIOVASCULAR: Regular rate and rhythm. RESPIRATORY: Bilaterally rhonchi throughout with decreased breath sounds at bases. No crackles. GASTROINTESTINAL: Abdomen is soft, non-tender, and nondistended. MUSCULOSKELETAL: No obvious deformities, swelling, cyanosis, or ecchymosis is present throughout the upper and lower extremities. Patient has full range of motion without any signs of neurovascular compromise. Distal pulses are 2+ throughout. NEUROLOGICAL: Awake, alert, and oriented. Normal speech and gait. Cranial nerves are grossly intact. Results - Labs CBC & Chem 7: 06/09/18 15:42 06/09/18 14:00 Labs: Laboratory Results - last 24 hr 06/09/18 06/09/18 06/09/18 14:00 14:00 14:46 WBC RBC Hgb Hct MCV MCH MCHC RDW Plt Count MPV Neut % (Auto) Lymph % (Auto) [place] % (Auto) Eos % (Auto) Baso % (Auto) Neut # (Auto) Lymph # (Auto) [place] # (Auto) Eos # (Auto) Baso # (Auto) WBC Differential Differential Comment Puncture Site Left radial Patient Temperature 98.6 O2 Saturation 77 L* ABG pH 7.44 H ABG pCO2 36 L ABG pO2 43 L* ABG HCO3 24 ABG O2 Content 10.6 L ABG Base Excess 0.5 ABG Methemoglobin 0.5 Jason Test Present Hemoglobin 9.8 L Carboxyhemoglobin 3.8 Inspired O2 21 Critical Value Yes Sodium 141 Potassium 4.9 Chloride 112 H Carbon Dioxide 24.7 Anion Gap 4 L BUN 19 H Creatinine 2.18 H Estimated GFR 27 L Random Glucose 113 H Calcium 8.5 Total Bilirubin 0.4 AST 31 ALT 22 Alkaline Phosphatase 134 H Troponin I Less than 0.02 L Total Protein 7.7 Albumin 3.5 06/09/18 15:42 WBC 11.2 H RBC 3.04 L Hgb 9.9 L Hct 30.2 L MCV 99.3 MCH 32.6 MCHC 32.8 RDW 15.0 Plt Count 319 MPV 7.8 Neut % (Auto) 79.7 H Lymph % (Auto) 13.7 [place] % (Auto) 6.1 Eos % (Auto) 0.2 Baso % (Auto) 0.3 Neut # (Auto) 9.0 H Lymph # (Auto) 1.5 [place] # (Auto) 0.7 Eos # (Auto) 0.0 Baso # (Auto) 0.0 WBC Differential . Differential Comment Auto diff final Puncture Site Patient Temperature O2 Saturation ABG pH ABG pCO2 ABG pO2 ABG HCO3 ABG O2 Content ABG Base Excess ABG Methemoglobin Jason Test Hemoglobin Carboxyhemoglobin Inspired O2 Critical Value Sodium Potassium Chloride Carbon Dioxide Anion Gap BUN Creatinine Estimated GFR Random Glucose Calcium Total Bilirubin AST ALT Alkaline Phosphatase Troponin I Total Protein Albumin - Imaging Impressions Chest X-Ray 06/09/18 13:52 CONCLUSION: Probable CHF. This is new compared to previous of 03/16/2018. Caprini VTE Risk Assessment Caprini VTE Risk Assessment: Moderate/High Risk (score >= 2) Caprini Risk Assessment Model: Point Value = 1 Point Value = 2 Point Value = 3 Point Value = 5 Age 41-60 Minor surgery BMI > 25 kg/m2 Swollen legs Varicose veins or History of unexplained or recurrent spontaneous Oral contraceptives or hormone replacement Sepsis (< 1 month) Serious lung disease, including pneumonia (< 1 month) Abnormal pulmonary function Acute myocardial infarction Congestive heart failure (< 1 month) History of inflammatory bowel disease Medical patient at bed rest Age 61-74 Arthroscopic surgery Major open surgery (> 45 min) Laparoscopic surgery (> 45 min) Malignancy Confined to bed (> 72 hours) Immobilizing plaster cast Central venous access Age >= 75 History of VTE Family history of VTE Factor V Leiden Prothrombin [id number] Lupus anticoagulant Anticardiolipin antibodies Elevated serum homocysteine Heparin-induced thrombocytopenia Other congenital or acquired thrombophilia Stroke (< 1 month) Elective arthroplasty Hip, pelvis, or leg fracture Acute spinal cord injury (< 1 month) Prophylaxis Regimen: Total Risk Factor Score Risk Level Prophylaxis Regimen 0-1 Low Early ambulation 2 Moderate Order ONE of the following: *Sequential Compression Device (SCD) *Heparin 5000 units SQ BID 3-4 Higher Order ONE of the following medications: *Heparin 5000 units SQ TID *Enoxaparin/Lovenox 40 mg SQ daily (WT < 150 kg, CrCl > 30 mL/min) *Enoxaparin/Lovenox 30 mg SQ daily (WT < 150 kg, CrCl > 10-29 mL/min) *Enoxaparin/Lovenox 30 mg SQ BID (WT < 150 kg, CrCl > 30 mL/min) AND/OR *Sequential Compression Device (SCD) 5 or more Highest Order ONE of the following medications: *Heparin 5000 units SQ TID (Preferred with Epidurals) *Enoxaparin/Lovenox 40 mg SQ daily (WT < 150 kg, CrCl > 30 mL/min) *Enoxaparin/Lovenox 30 mg SQ daily (WT < 150 kg, CrCl > 10-29 mL/min) *Enoxaparin/Lovenox 30 mg SQ BID (WT < 150 kg, CrCl > 30 mL/min) AND *Sequential Compression Device (SCD) Assessment and Plan - Plan 1. Acute respiratory Failure multifactorial CHF exacerbation and COPD exacerbation 2. COPD exacerbation to continue Bronchodilator, Mucolytic incentive spirometry and Prednisone 3. CHF exacerbation asked for BNP and Echocardiogram to confirm this diagnosis doubt it. she has more symptoms related to COPD 4. Hypertension to continue Home medicines 5. Hyperlipidemia to continue home medicines 6. Schizophrenia discussed with Pharmacy due to that some of the home medicines she is allergic to but are her home meds, will reconfirm by pharmacy 7. HIV on HUNT therapy continue 8. Acute Renal Failure/Metabolic Acidosis and UTI status post Levaquin, recently admitted and status post renal biopsy demonstrated findings compatible with acute pyelonephritis, she was on Levaquin, no dialysis recommended, IR consulted to remove perm cath 9. Tobacco dependence strongly recommended to stop smoking. DVT prophylaxis with Heparin. Code Status: Full Code. Discussed Condition With: Patient and ER physician Discharge Planning: Once improving clinically.
[2018-06-09] MEDS ORDERED: Acetaminophen 325 MG Tablet PO PRN (16:36)
[2018-06-09] MEDS ORDERED: Bisacodyl 10 MG Supp RECTAL PRN (16:36)
[2018-06-09 17:12] LABS: Bacteria,Urine Moderate /hpf; Bilirubin,Urine Negative (Negative); Clarity,Urine Hazy (Clear); Color,Urine Yellow (Yellw/Straw); Glucose,Urine (UA) Negative (Negative); Leukocyte Esterase,Urine Small (Negative); Mucus,Urine Few /lpf (Occasional); Nitrite,Urine Negative (Negative); Specific Gravity,Urine 1.011 (1.002-1.035); Squamous Epithelial Cell,Urine 3 /hpf (0-5)
[2018-06-09] MEDS: Heparin - SQ 10,000 UNITS/ML Vial SQ SCH (17:34)
[2018-06-09] MEDS: MethylPREDNISolone Sod Succinate Inj 40 MG/ML Vial IV.PUSH SCH (18:40)
[2018-06-09] MEDS ORDERED: Influenza (Quadrivalent) Vaccine 0.5 ML Syringe IM ONE (20:00)
[2018-06-09] MEDS: guaiFENesin 600 MG ER Tablet PO SCH (20:55)
[2018-06-09] MEDS: DARUNAVIR 600 MG PO SCH (20:55)
[2018-06-09] MEDS: Zolpidem Tartrate 5 MG Tablet PO SCH (20:55)
[2018-06-09] MEDS: Senna/Docusate Sodium 8.6/50 MG Tablet PO SCH (20:56)
[2018-06-09] MEDS ORDERED: QUEtiapine 25 MG Tablet PO SCH (21:00)
[2018-06-09 21:34] LABS: Creatine Kinase 83 U/L (26-192)
[2018-06-10] MEDS: MethylPREDNISolone Sod Succinate Inj 40 MG/ML Vial IV.PUSH SCH ×3 (00:12→12:38)
[2018-06-10 02:17] LABS: Baso % (Auto) 0.6 % (0.0-2.0); Hematocrit 29.1 % (35.0-46.0); Hemoglobin 9.7 gm/dL (11.6-15.3); Lymph # (Auto) 0.6 th/mm3 (1.0-4.8); Lymph % (Auto) 9.2 % (9.0-44.0); Mean Corpuscular HGB Conc 33.5 % (32.0-36.0); Mean Corpuscular Hemoglobin 32.6 pg (27.0-34.0); Mean Corpuscular Volume 97.1 fL (80.0-100.0); Mean Platelet Volume 7.8 fL (7.0-11.0); Mono # (Auto) 0.1 th/mm3 (0.0-0.9); Mono % (Auto) 1.5 % (0.0-8.0); Neut # (Auto) 5.4 th/mm3 (1.8-7.7); Neut % (Auto) 88.7 % (16.0-70.0); Platelet Count 308 th/mm3 (150-450); Red Blood Count 2.99 mil/mm3 (4.00-5.30); Red Cell Distribution Width 15.2 % (11.6-17.2); White Blood Count 6.1 th/mm3 (4.0-11.0)
[2018-06-10 02:40] LABS: Alanine Aminotransferase 31 U/L (10-53); Albumin 3.3 g/dL (3.4-5.0); Anion Gap 6 meq/L (5-15); Aspartate Aminotransferase 34 U/L (15-37); Blood Urea Nitrogen 25 mg/dL (7-18); Calcium 8.2 mg/dL (8.5-10.1); Carbon Dioxide 25.6 meq/L (21.0-32.0); Chloride 109 meq/L (98-107); Glomerular Filtration Rate 27 mL/min (>89); Glucose,Random 201 mg/dL (74-106); Potassium 4.2 meq/L (3.5-5.1); Sodium 141 meq/L (136-145)
[2018-06-10 02:44] LABS: Alkaline Phosphatase 129 U/L (45-117)
[2018-06-10 02:45] LABS: Creatine Kinase 72 U/L (26-192)
[2018-06-10] MEDS: Heparin - SQ 10,000 UNITS/ML Vial SQ SCH ×2 (06:10→18:08)
[2018-06-10] MEDS ORDERED: Lisinopril 20 MG Tablet PO SCH (09:00)
[2018-06-10] MEDS: amLODIPine 10 MG Tablet PO SCH (09:46)
[2018-06-10] MEDS: DARUNAVIR 600 MG PO SCH ×2 (09:46→20:49)
[2018-06-10] MEDS: guaiFENesin 600 MG ER Tablet PO SCH ×2 (09:47→20:49)
[2018-06-10] MEDS: Senna/Docusate Sodium 8.6/50 MG Tablet PO SCH ×2 (09:47→20:50)
--- NOTE | 2018-06-10 11:04 | P.PN ---
Subjective Interval history: Follow up for HIV, CHF exacerbation, COPD exacerbation. Patient is currently doing well, currently on 3-4L of O2 via NC. Patient denies any chest pain, fever , chills. Physical Exam Vital signs: Vital Signs 06/09/18 13:39 06/09/18 13:53 06/09/18 14:28 Temperature 98.8 F Pulse Rate 92 H 89 78 Respiratory Rate 36 H 23 Blood Pressure 140/65 Pulse Oximetry 88 L 95 06/09/18 14:41 06/09/18 14:45 06/09/18 15:00 Temperature 97.8 F Pulse Rate 89 84 90 Respiratory Rate 24 22 21 Blood Pressure 140/67 Pulse Oximetry 94 L 06/09/18 15:13 06/09/18 15:44 06/09/18 17:34 Temperature 97.9 F 98 F Pulse Rate 91 H 93 H Respiratory Rate 20 20 Blood Pressure 140/64 130/60 Pulse Oximetry 94 L 95 95 06/09/18 19:34 06/09/18 20:00 06/09/18 23:44 Temperature 100.0 F H Pulse Rate 69 88 81 Respiratory Rate 20 22 22 Blood Pressure 120/60 Pulse Oximetry 94 L 92 L 94 L 06/10/18 00:00 06/10/18 04:00 06/10/18 04:27 Temperature 99.7 F H 98.9 F Pulse Rate 87 81 89 Respiratory Rate 22 22 20 Blood Pressure 136/63 135/64 Pulse Oximetry 91 L 92 L 94 L 06/10/18 08:00 06/10/18 08:25 06/10/18 08:30 Temperature 98.8 F Pulse Rate 88 70 Respiratory Rate 17 20 Blood Pressure 138/63 Pulse Oximetry 93 L 95 Intake & Output 06/09/18 06/10/18 06/10/18 18:59 06:59 18:59 Intake Total 150 / 150 Output Total 800 / 800 150 / 150 Balance -650 / -650 -150 / -150 Weight 68.6 kg 68.2 kg Intake: IV 150 / 150 Levaquin 250 mg Premix Inj 250 50 / 50 mg In 50 ml @ 50 mls/hr IV.SIG ONCE ONE Rx#:[id number] Magnesium Sulfate 1 gm/D5W 100 100 / 100 ml Premix 100 ML @ 100 mls/hr IV.SIG ONCE ONE Rx#:[id number] Output: Urine 800 / 800 150 / 150 Other: # Voids 2 # Bowel Movements 0 Weight On Admission 68.6 kg Narrative: GENERAL: Alert, NAD. SKIN: Warm and dry. HEAD: Normocephalic. EYES: No scleral icterus. No injection or drainage. NECK: Supple, trachea midline. No JVD or lymphadenopathy. CARDIOVASCULAR: Regular rate and rhythm without murmurs, gallops, or rubs. RESPIRATORY: Breath sounds equal bilaterally. No accessory muscle use. GASTROINTESTINAL: Abdomen soft, non-tender, nondistended. MUSCULOSKELETAL: No cyanosis, or edema. BACK: Nontender without obvious deformity. No CVA tenderness. Results - Labs CBC & Chem 7: 06/10/18 02:03 06/10/18 02:03 Laboratory Results - last 24 hr 06/09/18 06/09/18 06/09/18 14:00 14:00 14:00 WBC RBC Hgb Hct MCV MCH MCHC RDW Plt Count MPV Neut % (Auto) Lymph % (Auto) [place] % (Auto) Eos % (Auto) Baso % (Auto) Neut # (Auto) Lymph # (Auto) [place] # (Auto) Eos # (Auto) Baso # (Auto) WBC Differential Differential Comment Puncture Site Patient Temperature O2 Saturation ABG pH ABG pCO2 ABG pO2 ABG HCO3 ABG O2 Content ABG Base Excess ABG Methemoglobin Jason Test Hemoglobin Carboxyhemoglobin Inspired O2 Critical Value Sodium 141 Potassium 4.9 Chloride 112 H Carbon Dioxide 24.7 Anion Gap 4 L BUN 19 H Creatinine 2.18 H Estimated GFR 27 L Random Glucose 113 H Calcium 8.5 Total Bilirubin 0.4 AST 31 ALT 22 Alkaline Phosphatase 134 H Total Creatine Kinase Troponin I Less than 0.02 L B-Natriuretic Peptide 554 H Total Protein 7.7 Albumin 3.5 Urine Color Urine Clarity Urine pH Ur Specific [place] Urine Protein Urine Glucose (UA) Urine Ketones Urine Occult Blood Urine Nitrate Urine Bilirubin Urine Urobilinogen Ur Leukocyte Esterase Urine RBC Urine WBC Ur Squamous Epith Cells Urine Bacteria Urine Mucus Micro UA Comment Ur Microscopic Review Urine Culture Comments 06/09/18 06/09/18 06/09/18 14:46 15:42 16:35 WBC 11.2 H RBC 3.04 L Hgb 9.9 L Hct 30.2 L MCV 99.3 MCH 32.6 MCHC 32.8 RDW 15.0 Plt Count 319 MPV 7.8 Neut % (Auto) 79.7 H Lymph % (Auto) 13.7 [place] % (Auto) 6.1 Eos % (Auto) 0.2 Baso % (Auto) 0.3 Neut # (Auto) 9.0 H Lymph # (Auto) 1.5 [place] # (Auto) 0.7 Eos # (Auto) 0.0 Baso # (Auto) 0.0 WBC Differential . Differential Comment Auto diff final Puncture Site Left radial Patient Temperature 98.6 O2 Saturation 77 L* ABG pH 7.44 H ABG pCO2 36 L ABG pO2 43 L* ABG HCO3 24 ABG O2 Content 10.6 L ABG Base Excess 0.5 ABG Methemoglobin 0.5 Jason Test Present Hemoglobin 9.8 L Carboxyhemoglobin 3.8 Inspired O2 21 Critical Value Yes Sodium Potassium Chloride Carbon Dioxide Anion Gap BUN Creatinine Estimated GFR Random Glucose Calcium Total Bilirubin AST ALT Alkaline Phosphatase Total Creatine Kinase Troponin I B-Natriuretic Peptide Total Protein Albumin Urine Color Yellow Urine Clarity Hazy H Urine pH 5.0 Ur Specific [place] 1.011 Urine Protein 30 H Urine Glucose (UA) Negative Urine Ketones Negative Urine Occult Blood Negative Urine Nitrate Negative Urine Bilirubin Negative Urine Urobilinogen Less than 2 Ur Leukocyte Esterase Small H Urine RBC 1 Urine WBC 28 H Ur Squamous Epith Cells 3 Urine Bacteria Moderate H Urine Mucus Few H Micro UA Comment Culture indicated Ur Microscopic Review Not Reportable Urine Culture Comments Culture indicated 06/09/18 06/10/18 06/10/18 20:11 02:03 02:03 WBC 6.1 RBC 2.99 L Hgb 9.7 L Hct 29.1 L MCV 97.1 MCH 32.6 MCHC 33.5 RDW 15.2 Plt Count 308 MPV 7.8 Neut % (Auto) 88.7 H Lymph % (Auto) 9.2 [place] % (Auto) 1.5 Eos % (Auto) 0.0 Baso % (Auto) 0.6 Neut # (Auto) 5.4 Lymph # (Auto) 0.6 L [place] # (Auto) 0.1 Eos # (Auto) 0.0 Baso # (Auto) 0.0 WBC Differential . Differential Comment Auto diff final Puncture Site Patient Temperature O2 Saturation ABG pH ABG pCO2 ABG pO2 ABG HCO3 ABG O2 Content ABG Base Excess ABG Methemoglobin Jason Test Hemoglobin Carboxyhemoglobin Inspired O2 Critical Value Sodium 141 Potassium 4.2 Chloride 109 H Carbon Dioxide 25.6 Anion Gap 6 BUN 25 H Creatinine 2.21 H Estimated GFR 27 L Random Glucose 201 H Calcium 8.2 L Total Bilirubin 0.3 AST 34 ALT 31 Alkaline Phosphatase 129 H Total Creatine Kinase 83 72 Troponin I Less than 0.02 L Less than 0.02 L B-Natriuretic Peptide Total Protein 7.0 D Albumin 3.3 L Urine Color Urine Clarity Urine pH Ur Specific [place] Urine Protein Urine Glucose (UA) Urine Ketones Urine Occult Blood Urine Nitrate Urine Bilirubin Urine Urobilinogen Ur Leukocyte Esterase Urine RBC Urine WBC Ur Squamous Epith Cells Urine Bacteria Urine Mucus Micro UA Comment Ur Microscopic Review Urine Culture Comments - Imaging Impressions Chest X-Ray 06/09/18 13:52 CONCLUSION: Probable CHF. This is new compared to previous of 03/16/2018. - Procedures None. Assessment and Plan - Plan Ms. Rice 68-year-old -[place] female with a history of HIV, hypertension, COPD, hyperlipidemia and schizophrenia who presented to the emergency department on 06/09/2018 due to shortness of breath and cough for 3 days prior to this admission. She denies any fever chills, nausea or vomiting. COPD exacerbation Possible CHF exacerbation Continue albuterol nebulizer treatment, Breo. Supplemental oxygen to keep O2 saturation above 90%. Continue prednisone 20 mg twice daily. DC Solu Medrol. Start Levaquin 750 mg every 48 hours. 2D echo pending. Will start Lasix 20mg IV Q12hrs. HIV Hypertension Continue amlodipine 10 mg daily. Currently normotensive. Discontinue lisinopril for now due to acute kidney injury. Continue HIV medications. Chronic kidney disease stage III Creatinine 2.18. This could be her baseline. Previously she had acute kidney injury requiring hemodialysis transiently. Full code. Heparin SQ
--- NOTE | 2018-06-10 12:34 | ECG ---
Date Performed: 06/09/2018 Time Performed: 14:30:42 PTAGE: 68 years EKG: Sinus rhythm NONSPECIFIC T-WAVE ABNORMALITY BORDERLINE ECG PREVIOUS TRACING : 03/16/2018 18.03 DOCTOR: Reza Salas Interpretating Date/Time 06/10/2018 12:34:21
--- NOTE | 2018-06-10 12:46 | ECHRPT ---
Indication: Heart Failure CONCLUSIONS Normal left ventricular size. Mild concentric left ventricular hypertrophy. The left ventricular systolic function is normal with an estimated ejection fraction in the range of 55-60%. The left atrial size is mildly dilated. Mild mitral valve regurgitation. Aortic valve sclerosis is present. There is mild tricuspid valve regurgitation. The estimated pulmonary arterial pressure is 58 mmHg. BP: / HR: Rhythm: MEASUREMENTS (Male / Female) Normal Values Technical Quality:Good 2D ECHO LV Diastolic Diameter PLAX 4.5 cm 4.2 - 5.9 / 3.9 - 5.3 cm LV Systolic Diameter PLAX 3.3 cm IVS Diastolic Thickness 1.1 cm 0.6 - 1.0 / 0.6 - 0.9 cm LVPW Diastolic Thickness 1.1 cm 0.6 - 1.0 / 0.6 - 0.9 cm LV Relative Wall Thickness 0.5 RV Internal Dim ED PLAX 3.1 cm LVOT Diameter 1.8 cm Aortic Root Diameter 2.7 cm LA Systolic Diameter LX 4.2 cm 3.0 - 4.0 / 2.7 - 3.8 cm DOPPLER AV Peak Velocity 213.0 cm/s AV Peak Gradient 18.1 mmHg AV Mean Gradient 9.0 mmHg AV Velocity Time Integral 40.0 cm LVOT Peak Velocity 145.0 cm/s LVOT Peak Gradient 8.4 mmHg LVOT Velocity Time Integral 31.5 cm AV Area Cont Eq vti 2.0 cm AV Area Cont Eq pk 1.7 cm Mitral E Point Velocity 143.0 cm/s Mitral A Point Velocity 126.0 cm/s Mitral E to A Ratio 1.1 LV E' Lateral Velocity 12.0 cm/s Mitral E to LV E' Lateral Ratio 11.9 LV E' Septal Velocity 7.1 cm/s Mitral E to LV E' Septal Ratio 20.1 TR Peak Velocity 347.0 cm/s TR Peak Gradient 48.2 mmHg Right Atrial Pressure 10.0 mmHg Pulmonary Artery Systolic Pressu 58.2 mmHg Right Ventricular Systolic Press 58.2 mmHg PV Peak Velocity 146.0 cm/s PV Peak Gradient 8.5 mmHg FINDINGS LEFT VENTRICLE Normal left ventricular size. Mild concentric left ventricular hypertrophy. The left ventricular systolic function is normal with an estimated ejection fraction in the range of 55-60%. RIGHT VENTRICLE Normal right ventricular size and systolic function. LEFT ATRIUM The left atrial size is mildly dilated. RIGHT ATRIUM The right atrial size is normal. ATRIAL SEPTUM Normal atrial septal thickness without atrial level shunting by limited color doppler interrogation. AORTA The aortic root and proximal ascending aorta are normal in size on limited imaging. MITRAL VALVE Mild mitral valve regurgitation. AORTIC VALVE Trileaflet aortic valve. Aortic valve sclerosis is present. TRICUSPID VALVE There is mild tricuspid valve regurgitation. The estimated pulmonary arterial pressure is 58 mmHg. PULMONARY VALVE No pulmonary valve regurgitation or stenosis. VESSELS The inferior vena cava is normal in size. PERICARDIUM No pericardial effusion. Reza Salas MD, FACC (Electronically Signed) Final Date:10 June 2018 12:46
[2018-06-10] MEDS: predniSONE 20 MG Tablet PO SCH (20:49)
[2018-06-10] MEDS: Zolpidem Tartrate 5 MG Tablet PO SCH (20:50)
[2018-06-11] MEDS: Heparin - SQ 10,000 UNITS/ML Vial SQ SCH (05:00)
[2018-06-11] MEDS: guaiFENesin 600 MG ER Tablet PO SCH (08:24)
[2018-06-11] MEDS: amLODIPine 10 MG Tablet PO SCH (08:24)
[2018-06-11] MEDS: predniSONE 20 MG Tablet PO SCH (08:25)
[2018-06-11] MEDS: DARUNAVIR 600 MG PO SCH (08:26)
[2018-06-11] MEDS: Senna/Docusate Sodium 8.6/50 MG Tablet PO SCH (08:27)
[2018-06-11 14:04] VITALS: PULSE 80
[2018-06-11 15:08] VITALS: BP 113/59; RESP 18; TEMP 98.2; O2SAT 94
--- NOTE | 2018-06-11 15:48 | P.DS ---
Date of admission: 06/09/18 17:30 Primary care physician: UNKNOWN Attending physician on discharge: Alisia Christian Anticipated date of discharge: 06/11/18 Brief History from admission: This is a pleasant 68 y/o Female with HIV, Hypertension, COPD, Hyperlipidemia, Schizophrenia, who came to Emergency Room for evaluation of respiratory symptoms, she has developed shortness of breath and cough for the last 3 days, The patient states that she has chest pressure and tightness. States she has had a slight cough for the past 3 days. States she has had swelling of lower legs since five days ago. Denies any fever , chills, nausea, vomiting, abdominal pain, chest pain, lightheadedness or dizziness. States that she used her inhalers at home last night without relief of symptoms. She does admit to continuing to smoke cigarettes. DS: Medications - Discharge Medications Prescriptions: levofloxacin 750 mg PO Q48H #3 tab prednisone 20 mg PO BID #6 tab torsemide 10 mg PO DAILY #30 tab DS: Summary Hospital Course: Ms. Rice 68-year-old -[place] female with a history of HIV, hypertension, COPD, hyperlipidemia and schizophrenia who presented to the emergency department on 06/09/2018 due to shortness of breath and cough for 3 days prior to this admission. She denies any fever chills, nausea or vomiting. COPD exacerbation Possible CHF exacerbation Continue albuterol nebulizer treatment, Breo. Supplemental oxygen to keep O2 saturation above 90%. Continue prednisone 20 mg twice daily. Levaquin 750 mg every 48 hours. 2D echo shows EF 55-60%, Pulm artery pressure 58 mmHg. -continue torsemide upon discharge. Patient received IV lasix in the hospital. -Home O2 arranged. HIV Hypertension Continue amlodipine 10 mg daily. Currently normotensive. Discontinue lisinopril for now due to acute kidney injury. Continue HIV medications. Chronic kidney disease stage III Creatinine 2.18. This could be her baseline. Previously she had acute kidney injury requiring hemodialysis transiently. Full code. Heparin SQ for DVT prophylaxis. - Time Spent with Patient Total time spent providing and/or coordinating discharge services: Less than 30 minutes - Quality: VTE Deep Vein Thrombosis/Pulmonary Embolism Present on Admission: No Exam Vital signs: Vital Signs 06/10/18 16:00 06/10/18 16:06 06/10/18 16:07 Temperature 98.7 F Pulse Rate 88 Respiratory Rate 17 Blood Pressure 136/60 Pulse Oximetry 93 L 92 L Pulse Oximetry [Exertion on Room Air] 85 L Pulse Oximetry [Resting on Room Air] 91 L Pulse Oximetry [Resting with Oxygen] 92 L 06/10/18 16:08 06/10/18 19:56 06/10/18 20:00 Temperature 99.3 F Pulse Rate 82 84 83 Respiratory Rate 20 22 20 Blood Pressure 113/58 L Pulse Oximetry 95 Pulse Oximetry [Exertion on Room Air] Pulse Oximetry [Resting on Room Air] Pulse Oximetry [Resting with Oxygen] 06/10/18 20:05 06/10/18 23:46 06/10/18 23:56 Temperature Pulse Rate 81 82 84 Respiratory Rate 26 H Blood Pressure Pulse Oximetry 93 L Pulse Oximetry [Exertion on Room Air] Pulse Oximetry [Resting on Room Air] Pulse Oximetry [Resting with Oxygen] 06/11/18 00:00 06/11/18 03:42 06/11/18 03:46 Temperature 99 F 97.7 F Pulse Rate 90 79 78 Respiratory Rate 22 23 16 Blood Pressure 117/55 L 113/59 L Pulse Oximetry 92 L 96 Pulse Oximetry [Exertion on Room Air] Pulse Oximetry [Resting on Room Air] Pulse Oximetry [Resting with Oxygen] 06/11/18 07:35 06/11/18 07:52 06/11/18 08:00 Temperature 98.0 F Pulse Rate 81 78 80 Respiratory Rate 18 18 Blood Pressure 114/56 L Pulse Oximetry 97 95 Pulse Oximetry [Exertion on Room Air] Pulse Oximetry [Resting on Room Air] Pulse Oximetry [Resting with Oxygen] 06/11/18 11:28 06/11/18 12:00 Temperature 98.2 F Pulse Rate 78 80 Respiratory Rate 20 18 Blood Pressure 113/59 L Pulse Oximetry 94 L Pulse Oximetry [Exertion on Room Air] Pulse Oximetry [Resting on Room Air] Pulse Oximetry [Resting with Oxygen] Intake & Output 06/10/18 06/11/18 06/11/18 18:59 06:59 18:59 Intake Total 720 / 720 Output Total 1999 Balance -1280 / -1280 Weight 68.4 kg Intake: Oral 720 / 720 Output: Urine 1999 Other: # Bowel Movements 0 Narrative: GENERAL: Alert, NAD. SKIN: Warm and dry. HEAD: Normocephalic. EYES: No scleral icterus. No injection or drainage. NECK: Supple, trachea midline. No JVD or lymphadenopathy. CARDIOVASCULAR: Regular rate and rhythm without murmurs, gallops, or rubs. RESPIRATORY: Breath sounds equal bilaterally. No accessory muscle use. GASTROINTESTINAL: Abdomen soft, non-tender, nondistended. MUSCULOSKELETAL: No cyanosis, or edema. BACK: Nontender without obvious deformity. No CVA tenderness. Results Procedures completed during hospitalization: Echo 06/10/2018 Normal left ventricular size. Mild concentric left ventricular hypertrophy. The left ventricular systolic function is normal with an estimated ejection fraction in the range of 55-60%. The left atrial size is mildly dilated. Mild mitral valve regurgitation. Aortic valve sclerosis is present. There is mild tricuspid valve regurgitation. The estimated pulmonary arterial pressure is 58 mmHg. Labs on day of discharge: Preliminary micro results at discharge 06/09/18 16:40 Aerobic Blood Culture - Preliminary Blood - Peripheral No growth in 2 days Anaerobic Blood Culture - Preliminary No growth in 2 days 06/09/18 16:20 Aerobic Blood Culture - Preliminary Blood - Peripheral No growth in 2 days Anaerobic Blood Culture - Preliminary No growth in 2 days - Impressions ITS Impressions Chest X-Ray 06/09/18 13:52 CONCLUSION: Probable CHF. This is new compared to previous of 03/16/2018. Discharge Plan - Discharge Disposition Patient Disposition: 01 Discharge Home - Discharge Condition Condition: Good - Discharge Order Discharge Orders: Discharge Order (Routine); Ordered 06/11/18 Ordered By: Alisia Christian - Discharge Details Anticipated Discharge Date: 06/11/18 - Physicians Team Primary Care Provider: UNKNOWN, Attending Provider: Alisia Christian
[2018-06-11] MEDS ORDERED: levoFLOXacin 750 MG Tablet PO SCH (16:00)
== END 2018-06-11 16:15 | disposition home or self-care (01) ==
LOC: NEPC 13:28 → NEDA 17:30 → N04 17:50
PROVIDERS: ADMIT Hospitalist; ATTEND Hospitalist